=== PATIENT | female | born 1935 | race Caucasian/White ===

== ENCOUNTER 2017-09-19 06:44 | Inpatient (IN) | payer OTHER, MEDICARE ==
[2017-09-19 07:12] VITALS: BMI 25.7
--- NOTE | 2017-09-19 07:29 | PDOC ---
History of Present Illness - General Chief Complaint: Syncope/Near Syncope Stated Complaint: SYNCOPE Time Seen by Provider: 09/19/17 07:25 - History of Present Illness Initial Comments: 09/19/17 07:26 82 yo F with h/o HLD, HTN, and severe dementia BIBA from [facility] ( [facility] ) with seizure. Pt. vitals stable on EMS arrival. Pt. non verbal, and non communicative, and confused at baseline. Unable to obtain history from pt. Per nursing staff at [facility] ) Patient loss consciousness while nursing manager was tying pt. shoes while sitting down, and the patient closed her eyes, and started shaking / convulsing with generalized tonic clonic movements for less than one minute with tongue deviated to one side and foam out of mouth. Episode of urinary incontinence and was unresponsive following event. EMS performed chest compressions pt. with faint pulse. Did not delivery defibrillation or epinephrine. Nursing staff reports this has happened to her 1-2 years ago with admission to hospital and negative workup. [facility] night and day team report that EMS told them that this pt. had a syncopal event. There is no EMS fax report to clarify in ED. Nursing reports that she has not had F/C, N/V, wheezing , cough, diarrhea, constipation, weakness, LOC. Typically ambulates without assistive device. No reports of falls or change in behavior. Not on anticoagulation. Past History - Past Medical History Allergies/Adverse Reactions: Allergies Allergy/AdvReac Type Severity Reaction Status Date / Time No Known Allergies Allergy Verified 09/19/17 07:12 Home Medications: Ambulatory Orders Amlodipine Besylate 5 mg PO DAILY 09/19/17 Cholecalciferol (Vitamin D3) [Vitamin D] 2,000 unit PO DAILY 09/19/17 Losartan Potassium 50 mg PO DAILY 09/19/17 Quetiapine Fumarate [Seroquel -] 12.5 mg PO HS 09/19/17 Rosuvastatin [Crestor -] 10 mg PO DAILY 09/19/17 Sennosides [Senna Laxative] 17.2 mg PO HS 09/19/17 Anemia: Yes COPD: No Dementia: Yes GI Disorders: Yes (CONSTIPATION HX) HTN: Yes Hypercholesterolemia: Yes Psychiatric Problems: Yes (depression, anxiety) - Surgical History Abdominal Surgery: Yes (bowel obstruction) - Immunization History Td Vaccination: Yes TDAP Vaccination: Yes Immunization Up to Date: Yes - Suicide/Smoking/Psychosocial Hx Smoking History: Never smoked Have you smoked in the past 12 months: No Hx Alcohol Use: No Drug/Substance Use Hx: No Substance Use Type: None Hx Substance Use Treatment: No Review of Systems - Review of Systems Comments:: 09/19/17 07:27 Unable to obtain ROS d/t confusion. *Physical Exam - Vital Signs Last Vital Signs Temp Pulse Resp BP Pulse Ox 97.7 F 80 18 183/51 98 09/19/17 07:06 09/19/17 07:06 09/19/17 07:06 09/19/17 07:06 09/19/17 07:06 - Physical Exam Comments: 09/19/17 07:27 GENERAL: Awake, alert, and not oriented. Pt. not verbalizing or following commands. HEAD: No signs of trauma, normocephalic, atraumatic EYES: PERRLA, EOMI, sclera anicteric, conjunctiva clear ENT: Auricles normal inspection, hearing grossly normal, nares patent, oropharynx clear without exudates. Moist mucosa NECK: Normal ROM, supple, no lymphadenopathy, JVD, or masses LUNGS: No distress, speaks full sentences, clear to auscultation bilaterally HEART: Regular rate and rhythm, normal S1 and S2, no murmurs, rubs or gallops, peripheral pulses normal and equal bilaterally. ABDOMEN: Soft, nontender, normoactive bowel sounds. No guarding, no rebound. No masses. Neg CVA ttp. EXTREMITIES : Normal inspection, Normal range of motion, no edema. No clubbing or cyanosis. NEUROLOGICAL: Limited d/t mental status. Cranial nerves II through XII grossly intact. Gross motor strength in UE and LE intact. SKIN: Warm, Dry, normal turgor, no rashes or lesions noted ED Treatment Course - LABORATORY CBC & Chemistry Diagram: 09/19/17 08:00 09/19/17 08:00 Medical Decision Making - Medical Decision Making 09/19/17 07:38 82 yo F with h/o HLD, HTN, and severe dementia ( non verbal, and non communicative, and confused at baseline) BIBA from OS( [facility]) with generalized tonic clonic movements ofor less than ne minute. Nursing staff reports 1 cycle of chest compressions for unresponsiveness and absent pulse. Pt. hypertensive on arrival 183/51, non hypoxic, and AF. Nursing reports that she has not had F/C, N/V, wheezing, cough, diarrhea, constipation, weakness, LOC. Typically ambulates without assistive device. No reports of falls or change in behavior. Not on anticoagulation. Physical exam notable for foul smelling urine and on communicative at baseline. BP 116/54 improved from ED arrival 183/51.Pt. unable to communicate symptom, elderly, and with risk factors for CVA/TIA.Will obtain head imaging. Will consider underlying infection ( urinary source, meningitis, encephalitis), electrolyte deficiency, or acid-base derangement/ metabolic disturbance, hypoglycemia, or mass effect for acute seizure in elderly pt. Pt. may have fallen or syncopated prior to seizure like activity Differential for syncope is broad. Will evaluate for causes of syncope including cardiogenic (underlying heart dz. vs. dysarrythmias) , hypovolemia, neurogenic induced syncope. PMD. Yana Dawson. ED Course: CBC, CMP, Cardiac Pr, Lipase Lactic acid, blood culture, urine culture EKG, CXR CT HEAD, CT C SPINE NS 1 L 09/19/17 08:38 WBC: 11.0 09/19/17 09:36 Glu: 126 Trop: Neg 09/19/17 09:38 UA:Cloudy, 2+ Leuk Esterase. 42 WBC Ceftriaxone 1 g 09/19/17 09:40 CT HEAD: Unremarkable. Left thickening of external auditory canal wall. CXR: Unremarkable. Bibasilar atelectasis. 09/19/17 10:36 Admit to tele/inpt. per Dr. Andrade. *DC/Admit/Observation/Transfer Diagnosis at time of Disposition: Seizure, Cystitis - Discharge Dispostion Admit: Yes - Referrals Referrals: Yana Orozco MD [Primary Care Provider] - - Patient Instructions Additional Instructions: Please return to the emergency department with any new or worsening symptoms or concerns. Please follow up with your primary care physician within 72 hours. - Post Discharge Activity - Attestations Physician Attestion: 09/19/17 07:29 I attest to the information provided in this note.
[2017-09-19 08:05] LABS: BASO % 0.4 % (0-2.0); EOS % 0.6 % (0-4.5); HEMATOCRIT 36.8 % (32.4-45.2); HEMOGLOBIN 12.4 GM/dL (10.7-15.3); LYMPH % 10.6 % (8-40); MCH 28.4 pg (25.7-33.7); MCHC 33.7 g/dl (32.0-36.0); MEAN CELL VOLUME 84.2 fl (80-96); MEAN PLT VOLUME 8.9 fl (7.5-11.1); MONO % 5.9 % (3.8-10.2); NEUT % 82.5 % (42.8-82.8); PLATELET COUNT 151 K/MM3 (134-434); RBC 4.37 M/mm3 (3.60-5.2)
[2017-09-19 08:35] LABS: ALBUMIN 3.4 g/dl (3.4-5.0); ANION GAP 6 (8-16); BILIRUBIN,TOTAL 0.3 mg/dL (0.2-1.0); BLOOD UREA NITROGEN 15 mg/dL (7-18); CALCIUM 8.8 mg/dL (8.5-10.1); CHLORIDE 110 mmol/L (98-107); CO2 28 mmol/L (21-32); GLUCOSE,RANDOM 126 mg/dL (74-106); POTASSIUM 4.5 mmol/L (3.5-5.1); SGOT/AST 16 U/L (15-37); SGPT/ALT 29 U/L (12-78); SODIUM 144 mmol/L (136-145); TOT PROT 6.9 g/dl (6.4-8.2)
[2017-09-19 08:36] LABS: URINE APPEARANCE SLCLOUDY; URINE BILIRUBIN NEGATIVE (<2.0 mg/dL); URINE BLOOD NEGATIVE (NEGATIVE); URINE COLOR YELLOW; URINE GLUCOSE (UA) NEGATIVE (NEGATIVE); URINE KETONE NEGATIVE (NEGATIVE); URINE NITRITE POSITIVE (NEGATIVE); URINE PROTEIN NEGATIVE (NEGATIVE); URINE UROBILINOGEN NEGATIVE mg/dL (0.2-1.0)
[2017-09-19 08:36] LABS: ALK PHOS 170 U/L (45-117)
[2017-09-19 08:39] LABS: URINE LEUK ESTERASE 2+ (NEGATIVE)
[2017-09-19 08:40] LABS: EPI CELLS RARE /HPF (FEW); URINE BACTERIA FEW /hpf (NONE SEEN)
--- NOTE | 2017-09-19 08:49 | PDOC ---
Attending Attestation - Resident Resident Name: AshwinTyrelKamron - ED Attending Attestation I have performed the following: I have examined & evaluated the patient, The case was reviewed & discussed with the resident, I agree w/resident's findings & plan, Exceptions are as noted - HPI HPI: 09/19/17 08:48 82y F hx ofhtn, hl, dementia, presents from NH with complaint of seizure episode - was witnessed by aide per NH staff, pt noted to have generalized seizure like activity - was described as with eyes open +urinary incontinence, and there history consistent with a postictal period pt is limited from the patient. afterwards, upon arrival by EMS there was a period of nonresponsiveness, and thought to be pulselss and initiated chest compressions x 1 cycle. we were unabl eto confirm with EMS as EMS departed prior to our evaluation of the patient. history is limited by pateint due to dementia. GENERAL: The patient is awake, Nontoxic - in no acute distress. HEAD: Normocephalic, atraumatic. EYES: extraocular movements intact, sclera anicteric, conjunctiva clear. ENT: Normal voice, Moist mucous membranes. LUNGS: Breath sounds equal, clear to auscultation bilaterally. No wheezes, no rhonchi, no rales. HEART: Regular rate and rhythm, without murmur, rub or gallop. ABDOMEN: Soft, nontender, No guarding, no rebound.No CVA tenderness EXTREMITIES: Normal range of motion, no edema. NEUROLOGICAL: No facial assymetry, moving extremities spontaneously SKIN: Warm, Dry, normal turgor, seizure, ?cardiac arrest vs. post ictal period will r/ cardiac event, occult infection, metabolic derangment pt wella ppearing in no distress on exam will ck labs to r/o metabolic derangement ekg to screen for arrythmias/acs shipper and receiving anticipate admission for further management - Physicial Exam PE: 09/20/17 14:53 see above - Medical Decision Making pts labs noted for +UTI will treat for cystitis admit for further management stable for etele
[2017-09-19 09:03] LABS: INR 1.05 (0.82-1.09); PROTHROMBIN TIME (PATIENT) 11.9 SEC (9.98-11.88)
[2017-09-19] MEDS: SODIUM CHLORIDE 1,000 ML IV SCH ×2 (09:10→22:59)
[2017-09-19] MEDS ORDERED: SODIUM CHLORIDE 1,000 ML IV STA (10:02)
[2017-09-19] MEDS ORDERED: CEFTRIAXONE 1 GM/50 ML BAG ONE (10:13)
--- NOTE | 2017-09-19 10:57 | HP ---
CHIEF COMPLAINT: s/p seizure PCP: HISTORY OF PRESENT ILLNESS: This is an 82 yo F with PMH of HLD, HTN, and advanced Alzheimers dementia, BIBA from [facility] s/p generalized seizure. Even was witnessed by [facility] staff, patient was sitting in bed, there was no obvious predisposing event (no trauma, loud noise, bright light, sudden movement). It is uncertain how long event lasted but it involved mouth frothing/ urination and resolved spontaneously, followed by post ictal state. Patient had a similar episode 2 yrs ago, with some work up performed at [facility] without conclusive diagnosis. There has been no recent medication change. EMS reports that when they arrived patient had no palpable pulse so some chest compressions were done w/o other intervention. On arrival BP was initially 180 systolic and then decreased to 100 -110 systolic, which is patients baseline. She has given 2L ns in ed. At baseline patient is nonverbal, sometimes makes eye contact, ambulates with assistance from staff but w/o cane or walker. History obtained from record and her brother at bedside. ER course was notable for: (1)labs (2)ekg: L axis, ns (3)CT head: chronic age related volume loss. Cervical spine CT: no acute fracture. CXR: bibasilar atelectasis changes (4)IV NS 2L Recent Travel: none PAST MEDICAL HISTORY: as above PAST SURGICAL HISTORY: hysterectomy Social History: [place] resident. Brother is next of KIN. Smoking: none Alcohol:none Drugs: none Family History: unknown Allergies No Known Allergies Allergy (Verified 09/19/17 07:12) HOME MEDICATIONS: Home Medications Medication Instructions Recorded Amlodipine Besylate 5 mg PO DAILY 09/19/17 Cholecalciferol (Vitamin D3) 2,000 unit PO DAILY 09/19/17 [Vitamin D] Losartan Potassium 50 mg PO DAILY 09/19/17 Quetiapine Fumarate [Seroquel -] 12.5 mg PO HS 09/19/17 Rosuvastatin [Crestor -] 10 mg PO DAILY 09/19/17 Sennosides [Senna Laxative] 17.2 mg PO HS 09/19/17 REVIEW OF SYSTEMS unable to obtain PHYSICAL EXAMINATION Vital Signs - 24 hr 09/19/17 09/19/17 09/19/17 07:06 08:12 08:20 Temperature 97.7 F Pulse Rate 80 Respiratory 18 Rate Blood Pressure 183/51 Blood Pressure 116/54 [Right Arm] O2 Sat by Pulse 98 97 Oximetry (%) GENERAL: Awake, in no acute distress, makes eye contact, nonverbal. HEAD: Normal with no signs of trauma. EYES: Pupils equal, round and reactive to light, sclera anicteric, conjunctiva clear. No lid lag. EARS, NOSE, THROAT: Moist mucous membranes. NECK: supple without lymphadenopathy, JVD, or masses. LUNGS: Breath sounds equal, clear to auscultation bilaterally. HEART: Regular rate and rhythm, normal S1 and S2 ABDOMEN: Soft, nontender, not distended, normoactive bowel sounds, no guarding, no rebound, no masses. MUSCULOSKELETAL: No CVA tenderness. UPPER EXTREMITIES: 2+ pulses, warm, well-perfused. No cyanosis. No clubbing. No peripheral edema. LOWER EXTREMITIES: 1+ pulses, warm, well-perfused. No calf tenderness. trace peripheral edema. NEUROLOGICAL: Cranial nerves II-XII grossly intact. moves all extremities when provoked PSYCHIATRIC: calm SKIN: Warm, dry Laboratory Results - last 24 hr 09/19/17 09/19/17 09/19/17 07:46 07:46 07:46 WBC RBC Hgb Hct MCV MCH MCHC RDW Plt Count MPV Neutrophils % Lymphocytes % Monocytes % Eosinophils % Basophils % PT with INR INR Sodium Potassium Chloride Carbon Dioxide Anion Gap BUN Creatinine Creat Clearance w eGFR Random Glucose Lactic Acid Calcium Total Bilirubin AST ALT Alkaline Phosphatase Creatine Kinase 61 Troponin I < 0.02 Total Protein Albumin Lipase 47 L Urine Color Yellow Urine Appearance Slcloudy Urine pH 6.0 Ur Specific [place] 1.009 Urine Protein Negative Urine Glucose (UA) Negative Urine Ketones Negative Urine Blood Negative Urine Nitrite Positive Urine Bilirubin Negative Urine Urobilinogen Negative Ur Leukocyte Esterase 2+ H Urine WBC (Auto) 42 Urine RBC (Auto) 1 Ur Epithelial Cells Rare Urine Bacteria Few 09/19/17 09/19/17 09/19/17 08:00 08:00 08:00 WBC 11.0 H D RBC 4.37 Hgb 12.4 D Hct 36.8 D MCV 84.2 MCH 28.4 MCHC 33.7 RDW 14.0 Plt Count 151 MPV 8.9 Neutrophils % 82.5 Lymphocytes % 10.6 D Monocytes % 5.9 Eosinophils % 0.6 Basophils % 0.4 PT with INR 11.90 H INR 1.05 Sodium 144 Potassium 4.5 Chloride 110 H Carbon Dioxide 28 Anion Gap 6 L BUN 15 Creatinine 1.0 Creat Clearance w eGFR 53.35 Random Glucose 126 H Lactic Acid Calcium 8.8 Total Bilirubin 0.3 D AST 16 ALT 29 Alkaline Phosphatase 170 H Creatine Kinase Troponin I Total Protein 6.9 Albumin 3.4 Lipase Urine Color Urine Appearance Urine pH Ur Specific [place] Urine Protein Urine Glucose (UA) Urine Ketones Urine Blood Urine Nitrite Urine Bilirubin Urine Urobilinogen Ur Leukocyte Esterase Urine WBC (Auto) Urine RBC (Auto) Ur Epithelial Cells Urine Bacteria 09/19/17 09:30 WBC RBC Hgb Hct MCV MCH MCHC RDW Plt Count MPV Neutrophils % Lymphocytes % Monocytes % Eosinophils % Basophils % PT with INR INR Sodium Potassium Chloride Carbon Dioxide Anion Gap BUN Creatinine Creat Clearance w eGFR Random Glucose Lactic Acid 1.7 Calcium Total Bilirubin AST ALT Alkaline Phosphatase Creatine Kinase Troponin I Total Protein Albumin Lipase Urine Color Urine Appearance Urine pH Ur Specific [place] Urine Protein Urine Glucose (UA) Urine Ketones Urine Blood Urine Nitrite Urine Bilirubin Urine Urobilinogen Ur Leukocyte Esterase Urine WBC (Auto) Urine RBC (Auto) Ur Epithelial Cells Urine Bacteria ASSESSMENT/PLAN: This is an 82 yo F with PMH of HLD, HTN, and advanced Alzheimers dementia, BIBA from [facility] s/p generalized seizure. Generalized seizure in setting of advanced Alzheimers dementia -second episode in 2 yrs -up to 20% of Alzheimers patients develop focal or generalizes SZ in late course of disease -may be secondary to CVA/TIA since 50% of all SZ in elderly is associated with ischemic episodes -CT head negative for structural cause or hemorrhage -so far unexplained by metabolic causes; f/u TFT's, mag, phos -admit tele -PT -high dose crestor, ASA -swallow eval -brain MRI -antiepeleptic medication initiation is highly nuanced in this population and warrants Neurology consult -possible EEG UTI -present nitrites and leuk est on UA, however, considered asymptomatic and does not warrant abx HTN -resume home losartan, norvasc. HLD -crestor FEN: no IVF f/u lytes dysphagia puree, nectar liquids, NA restricted SQ Luan DNR/DNI ADM tele Problem List - Problem (1) Alzheimer's dementia Code(s): G30.9 - ALZHEIMER'S DISEASE, UNSPECIFIED; F02.80 - DEMENTIA IN OTH DISEASES CLASSD ELSWHR W/O BEHAVRL DISTURB (2) HTN (hypertension) Code(s): I10 - ESSENTIAL (PRIMARY) HYPERTENSION (3) HLD (hyperlipidemia) Code(s): E78.5 - HYPERLIPIDEMIA, UNSPECIFIED (4) Seizure Code(s): R56.9 - UNSPECIFIED CONVULSIONS (5) DVT prophylaxis Code(s): SNF3056 - (6) Dementia Code(s): F03.90 - UNSPECIFIED DEMENTIA WITHOUT BEHAVIORAL DISTURBANCE Qualifiers: Dementia type: Alzheimer's disease Alzheimer's disease onset: unspecified onset Dementia behavioral disturbance: without behavioral disturbance Qualified Code(s): G30.9 - Alzheimer's disease, unspecified Visit type - Emergency Visit Emergency Visit: Yes ED Registration Date: 09/19/17 Care time: The patient presented to the Emergency Department on the above date and was hospitalized for further evaluation of their emergent condition. - New Patient This patient is new to me today: Yes Date on this admission: 09/19/17 - Critical Care Critical Care patient: No Hospitalist Screening - Colonoscopy Questionnaire Colonoscopy Questionnaire: Colonoscopy Questionnaire - Patient: 50 - 75 years old and never had a screening colonoscopy: No History of colon or rectal polyps, or CA: No History of IBD, Crohn's disease or UC: No History of abdominal radiation therapy as a child: No - Relative: 1 with colon or rectal CA, or polyps at age 60 or younger: No Colon or rectal CA diagnosed at age 45 or younger: No Multiple relatives with colon or rectal CA: No - Outcome: Screening Result: Negative Screen
--- NOTE | 2017-09-19 11:03 | EKG ---
Test Reason : Blood Pressure : / mmHG Vent. Rate : 083 BPM Atrial Rate : 083 BPM P-R Int : 198 ms QRS Dur : 070 ms QT Int : 376 ms P-R-T Axes : 032 -25 039 degrees QTc Int : 441 ms POOR DATA QUALITY, INTERPRETATION MAY BE ADVERSELY AFFECTED NORMAL SINUS RHYTHM NONSPECIFIC ST AND T WAVE ABNORMALITY ABNORMAL ECG WHEN COMPARED WITH ECG OF 31-AUG-2015 09:12, VENT. RATE HAS INCREASED BY [address] NOW DEPRESSED IN ANTERIOR LEADS Confirmed by GITA MA, OLIVEIR ([id number]) on 09/19/2017 11:03:04 AM Referred By: Confirmed By:OLIVIER PELAYO MD
[2017-09-19] MEDS ORDERED: ROSUVASTATIN CA 40 MG TABLET PO ONE (11:08)
[2017-09-19 12:07] LABS: MAGNESIUM 2.6 mg/dL (1.8-2.4)
[2017-09-19] MEDS ORDERED: ASPIRIN 325 MG ENTERIC COATED TABLET (FP) PO ONE (13:45)
--- NOTE | 2017-09-19 14:28 | PN ---
Teaching Attending Note Name of Resident: Renata Andrade ATTENDING PHYSICIAN STATEMENT I saw and evaluated the patient. I reviewed the resident's note and discussed the case with the resident. I agree with the resident's findings and plan as documented. SUBJECTIVE: This is an 82 year old woman with a history of HTN, hyperlipidemia, Alzheimer dementia, anemia, adrenal adenoma, constipation who was sent to the ED from [facility] after having a seizure. The patient is unable to provide a history. It was reported that while an aide was tying her shoes while she was sitting, she started shaking. She had generalized tonic clonic movements. Her tongue was deviated, she was foaming at the mouth, and she was incontinent of urine. Afterwards, she was unresponsive. EMS arrived and thought she was pulseless and started chest compressions. OBJECTIVE: Vital Signs Period Temp Pulse Resp BP Sys/Freeman Pulse Ox Last 24 Hr 97.7 F 80 18 116-183/51-54 97-98 GENERAL: Awake, non-communicative HEART: S1S2, RRR LUNGS: Clear ABDOMEN: Soft, non-distended, normal BS EXTREMITIES: No edema Laboratory Tests 09/19/17 09/19/17 09/19/17 07:46 07:46 07:46 WBC RBC Hgb Hct MCV MCH MCHC RDW Plt Count MPV Neutrophils % Lymphocytes % Monocytes % Eosinophils % Basophils % PT with INR INR Sodium Potassium Chloride Carbon Dioxide Anion Gap BUN Creatinine Creat Clearance w eGFR Random Glucose Lactic Acid Calcium Phosphorus Magnesium Total Bilirubin AST ALT Alkaline Phosphatase Creatine Kinase 61 Troponin I < 0.02 Total Protein Albumin Lipase 47 L TSH Free T4 Urine Color Yellow Urine Appearance Slcloudy Urine pH 6.0 Ur Specific [place] 1.009 Urine Protein Negative Urine Glucose (UA) Negative Urine Ketones Negative Urine Blood Negative Urine Nitrite Positive Urine Bilirubin Negative Urine Urobilinogen Negative Ur Leukocyte Esterase 2+ H Urine WBC (Auto) 42 Urine RBC (Auto) 1 Ur Epithelial Cells Rare Urine Bacteria Few 09/19/17 09/19/17 09/19/17 08:00 08:00 08:00 WBC 11.0 H D RBC 4.37 Hgb 12.4 D Hct 36.8 D MCV 84.2 MCH 28.4 MCHC 33.7 RDW 14.0 Plt Count 151 MPV 8.9 Neutrophils % 82.5 Lymphocytes % 10.6 D Monocytes % 5.9 Eosinophils % 0.6 Basophils % 0.4 PT with INR 11.90 H INR 1.05 Sodium 144 Potassium 4.5 Chloride 110 H Carbon Dioxide 28 Anion Gap 6 L BUN 15 Creatinine 1.0 Creat Clearance w eGFR 53.35 Random Glucose 126 H Lactic Acid Calcium 8.8 Phosphorus Magnesium Total Bilirubin 0.3 D AST 16 ALT 29 Alkaline Phosphatase 170 H Creatine Kinase Troponin I Total Protein 6.9 Albumin 3.4 Lipase TSH Free T4 Urine Color Urine Appearance Urine pH Ur Specific [place] Urine Protein Urine Glucose (UA) Urine Ketones Urine Blood Urine Nitrite Urine Bilirubin Urine Urobilinogen Ur Leukocyte Esterase Urine WBC (Auto) Urine RBC (Auto) Ur Epithelial Cells Urine Bacteria 09/19/17 09/19/17 09/19/17 09:30 09:55 09:55 WBC RBC Hgb Hct MCV MCH MCHC RDW Plt Count MPV Neutrophils % Lymphocytes % Monocytes % Eosinophils % Basophils % PT with INR INR Sodium Potassium Chloride Carbon Dioxide Anion Gap BUN Creatinine Creat Clearance w eGFR Random Glucose Lactic Acid 1.7 Calcium Phosphorus 2.0 L Magnesium 2.6 H Total Bilirubin AST ALT Alkaline Phosphatase Creatine Kinase Troponin I Total Protein Albumin Lipase TSH 3.71 Free T4 1.35 Urine Color Urine Appearance Urine pH Ur Specific [place] Urine Protein Urine Glucose (UA) Urine Ketones Urine Blood Urine Nitrite Urine Bilirubin Urine Urobilinogen Ur Leukocyte Esterase Urine WBC (Auto) Urine RBC (Auto) Ur Epithelial Cells Urine Bacteria Home Medications Medication Instructions Recorded Amlodipine Besylate 5 mg PO DAILY 09/19/17 Cholecalciferol (Vitamin D3) 2,000 unit PO DAILY 09/19/17 [Vitamin D] Losartan Potassium 50 mg PO DAILY 09/19/17 Quetiapine Fumarate [Seroquel -] 12.5 mg PO HS 09/19/17 Rosuvastatin [Crestor -] 10 mg PO DAILY 09/19/17 Sennosides [Senna Laxative] 17.2 mg PO HS 09/19/17 ASSESSMENT AND PLAN: This is an 82 year old woman with a history of HTN, hyperlipidemia, Alzheimer dementia, anemia, adrenal adenoma, constipation who presented to the ED from [facility] after having a seizure. 1. Seizure - Admit to telemetry - Neurology evaluation - Treat UTI 2. UTI - Start Rocephin - Follow up urine culture 3. Hypophosphatemia - Supplement phosphorus 4. Advanced Alzheimer dementia - Continue Seroquel 5. Hypertension - Continue Akin Valentine 6. Hyperlipidemia - Continue Crestor 7. Constipation - Continue Senna
--- NOTE | 2017-09-19 14:50 | CONSULT ---
Consult - text type - Consultation Consultation Note: NEUROLOGY CONSULTATION is greatly appreciated: This 82 yo female [facility] resident with h/o HTN, Chol and advanced OMS is maintained on amlodipine, losartan, quetiapine and rosuvastatin. Pt. had witnessed LOC while sitting in chair followed by probable seizure activity, foaming at mouth, shaking, with a "faint pulse" described. Chart reports a similar presentation 2 years ago[address] In ER CT of head (reviewed) reveals severe, diffuse atrophy, ex vacuo hydrocephalus, and diffuse white matter microvascular changes. CT of Cervical spine: Diffuse DJD with foraminal stenoses but no fractures or subluxations. WBC= 11 K; urine WBC=42. Given 1 gm of Ceftriaxone, then D/C'ed. JOSE: Neck supple. -Kernig's. No bruits. No evidence of external head trauma. No tongue biting. NEURO: Resting with eyes closed. Opens eyes to name. Follows no commands. No useful speech. + Glabella, snout suck, palmomentals, grasps. Full wilburn to threat. Full EOM's. Gag OK Motor: Rigid tone. No drift. Moves all fours symmetrically. Normal reflexes. Toes downgoing. Withdraws all 4's to pinch. IMP: Severe B/L cerebral dysfunction c/w advanced Alzheimer's Disease (AD). Syncope (convulsive syncope) vs. Primary seizure Toxic-metabolic encephalopathy due to UTI/Urosepsis. SUGGEST: Please continue Rx of UTI and repeat UA to assure sterility. Continue hydration. Check B12, TSH, RPR, ESR, CRP. Levetiracetam elixor 250 mg q 12 hrs. Thank you very much, Benigno Arciniega MD
[2017-09-19] MEDS: levETIRAcetam 500 MG/5 ML ORAL SOLUTION (UNIT-DOSE CUPS) PO SCH (22:35)
[2017-09-19] MEDS: QUEtiapine FUMARATE 25 MG TABLET (FP) PO SCH (22:36)
[2017-09-19] MEDS: SENNOSIDES 8.6MG TABLET (FP) PO SCH (22:36)
[2017-09-19] MEDS: NAPH,MB-DB/K PH,MBDB POWDER PACKET PO SCH (22:36)
[2017-09-20 08:25] LABS: BASO % 0.5 % (0-2.0); EOS % 1.5 % (0-4.5); HEMATOCRIT 31.3 % (32.4-45.2); HEMOGLOBIN 10.6 GM/dL (10.7-15.3); LYMPH % 32.5 % (8-40); MCH 28.5 pg (25.7-33.7); MCHC 33.8 g/dl (32.0-36.0); MEAN CELL VOLUME 84.4 fl (80-96); MEAN PLT VOLUME 9.3 fl (7.5-11.1); MONO % 9.6 % (3.8-10.2); NEUT % 55.9 % (42.8-82.8); PLATELET COUNT 136 K/MM3 (134-434); RBC 3.71 M/mm3 (3.60-5.2); RDW 13.9 % (11.6-15.6); WHITE BLOOD COUNT 5.7 K/mm3 (4.0-10.0)
[2017-09-20 08:33] LABS: CHLORIDE 115 mmol/L (98-107); POTASSIUM 4.3 mmol/L (3.5-5.1); SODIUM 146 mmol/L (136-145)
[2017-09-20 08:38] LABS: INR 1.1 (0.82-1.09); PROTHROMBIN TIME (PATIENT) 12.4 SEC (9.98-11.88)
[2017-09-20 08:49] LABS: ANION GAP 6 (8-16); BLOOD UREA NITROGEN 11 mg/dL (7-18); CHOLESTEROL 126 mg/dL (50-200); CO2 25 mmol/L (21-32); CREATININE 0.9 mg/dL (0.55-1.02); GLUCOSE,RANDOM 91 mg/dL (74-106); HDL CHOLESTEROL 44 mg/dL (40-60); LDL CHOLESTEROL (ONLY SJRH) 69 mg/dL (5-100); MAGNESIUM 2.2 mg/dL (1.8-2.4); PHOSPHOROUS 2.3 mg/dL (2.5-4.9); TRIGLYCERIDES 123 mg/dL (35-160)
[2017-09-20] MEDS ORDERED: DEXTROSE 5%-WATER - 50 ML IVPB ONE (09:10)
[2017-09-20] MEDS ORDERED: cefTRIAXone SODIUM 1 GM VIAL ONE (09:10)
[2017-09-20] MEDS: CEFTRIAXONE 1 GM in DEXTROSE 5%-WATER - 50 ML IVPB SCH (09:11)
[2017-09-20] MEDS: amLODIPine BESYLATE 5 MG TABLET (FP) PO SCH (09:12)
[2017-09-20] MEDS: ASPIRIN COATED 81 MG TABLET.EC PO SCH (09:12)
[2017-09-20] MEDS: NAPH,MB-DB/K PH,MBDB POWDER PACKET PO SCH ×2 (09:12→21:01)
[2017-09-20] MEDS: ENOXAPARIN NA (PORCINE) 40 MG/0.4 ML DISP.SYRIN SQ SCH (09:12)
[2017-09-20] MEDS: CHOLECALCIFEROL (VITAMIN D3) 1,000 UNIT TABLET (FP) PO SCH (09:12)
[2017-09-20] MEDS: LOSARTAN POTASSIUM 50 MG TABLET (FP) PO SCH (09:12)
[2017-09-20] MEDS: DEXTROSE 5%-0.45% SALINE 1,000 ML IV SCH ×2 (09:13→17:06)
[2017-09-20] MEDS: levETIRAcetam 500 MG/5 ML ORAL SOLUTION (UNIT-DOSE CUPS) PO SCH ×2 (09:13→21:04)
[2017-09-20] MEDS ORDERED: ROSUVASTATIN CA 10 MG TABLET (FP) PO SCH ×2 (10:00→22:00)
--- NOTE | 2017-09-20 18:33 | PN ---
Physical Exam: SUBJECTIVE: Patient seen and examined. She is awake, alert and non-verbal. She appears comfortable. OBJECTIVE: Vital Signs Period Temp Pulse Resp BP Sys/Freeman Pulse Ox Last 24 Hr 97.7 F-99.8 F 57-71 16-20 113-136/53-79 97-98 GENERAL: The patient is awake, alert, in no acute distress. LUNGS: Breath sounds equal, clear to auscultation bilaterally, no wheezes, no crackles, no accessory muscle use. HEART: Regular rate and rhythm, S1, S2 without murmur, rub or gallop. ABDOMEN: Soft, nondistended, normoactive bowel sounds, no hepatosplenomegaly, no masses. EXTREMITIES: 2+ pulses, warm, well-perfused, no edema. Laboratory Results - last 24 hr 09/19/17 09/20/17 09/20/17 21:58 05:02 06:00 WBC 5.7 D RBC 3.71 Hgb 10.6 L D Hct 31.3 L MCV 84.4 MCH 28.5 MCHC 33.8 RDW 13.9 Plt Count 136 MPV 9.3 Neutrophils % 55.9 D Lymphocytes % 32.5 D Monocytes % 9.6 Eosinophils % 1.5 D Basophils % 0.5 ESR PT with INR INR Sodium Potassium Chloride Carbon Dioxide Anion Gap BUN Creatinine POC Glucometer 96 81 Random Glucose Hemoglobin A1c % Calcium Phosphorus Magnesium C-Reactive Protein Triglycerides Cholesterol Total LDL Cholesterol HDL Cholesterol Vitamin B12 TSH RPR Titer 09/20/17 09/20/17 09/20/17 06:00 06:00 06:00 WBC RBC Hgb Hct MCV MCH MCHC RDW Plt Count MPV Neutrophils % Lymphocytes % Monocytes % Eosinophils % Basophils % ESR PT with INR 12.40 H INR 1.10 Sodium 146 H Potassium 4.3 Chloride 115 H Carbon Dioxide 25 Anion Gap 6 L BUN 11 Creatinine 0.9 POC Glucometer Random Glucose 91 Hemoglobin A1c % 5.6 Calcium 8.0 L Phosphorus 2.3 L Magnesium 2.2 C-Reactive Protein Triglycerides 123 Cholesterol 126 Total LDL Cholesterol 69 HDL Cholesterol 44 Vitamin B12 TSH 1.34 RPR Titer 09/20/17 09/20/17 09/20/17 06:00 06:00 06:00 WBC RBC Hgb Hct MCV MCH MCHC RDW Plt Count MPV Neutrophils % Lymphocytes % Monocytes % Eosinophils % Basophils % ESR 14 PT with INR INR Sodium Potassium Chloride Carbon Dioxide Anion Gap BUN Creatinine POC Glucometer Random Glucose Hemoglobin A1c % Calcium Phosphorus Magnesium C-Reactive Protein < 0.3 Triglycerides Cholesterol Total LDL Cholesterol HDL Cholesterol Vitamin B12 247 TSH RPR Titer Nonreactive 09/20/17 09/20/17 11:42 16:51 WBC RBC Hgb Hct MCV MCH MCHC RDW Plt Count MPV Neutrophils % Lymphocytes % Monocytes % Eosinophils % Basophils % ESR PT with INR INR Sodium Potassium Chloride Carbon Dioxide Anion Gap BUN Creatinine POC Glucometer 121 120 Random Glucose Hemoglobin A1c % Calcium Phosphorus Magnesium C-Reactive Protein Triglycerides Cholesterol Total LDL Cholesterol HDL Cholesterol Vitamin B12 TSH RPR Titer Active Medications Generic Name Dose Route Start Last Admin Trade Name Freq PRN Reason Stop Dose Admin Amlodipine Besylate 5 mg 09/20/17 10:00 09/20/17 09:12 Norvasc - PO 5 mg DAILY ANTHONY Administration Aspirin 81 mg 09/20/17 10:00 09/20/17 09:12 Ecotrin - PO 81 mg DAILY ANTHONY Administration Cholecalciferol 2,000 unit 09/20/17 10:00 09/20/17 09:12 Vitamin D3 - PO 2,000 unit DAILY ANTHONY Administration Enoxaparin Sodium 40 mg 09/20/17 10:00 09/20/17 09:12 Lovenox - SQ 40 mg DAILY ANTHONY Administration Ceftriaxone Sodium 1 gm/ 50 mls @ 200 mls/hr 09/20/17 10:00 09/20/17 09:11 Dextrose IVPB 200 mls/hr DAILY ANTHONY Administration Dextrose/Sodium Chloride 1,000 mls @ 100 mls/hr 09/20/17 05:15 09/20/17 17:06 D5-1/2ns - IV 100 mls/hr ASDIR ANTHONY Administration Levetiracetam 250 mg 09/19/17 22:00 09/20/17 09:13 Keppra Oral Solution - PO 250 mg BID ANTHONY Administration Losartan Potassium 50 mg 09/20/17 10:00 09/20/17 09:12 Cozaar - PO 50 mg DAILY ANTHONY Administration Potassium Phos/Sodium Phos 1 packet 09/19/17 22:00 09/20/17 09:12 Phos-Nak Packet - PO 09/21/17 21:59 1 packet BID ANTHONY Administration Quetiapine Fumarate 12.5 mg 09/19/17 22:00 09/19/17 22:36 Seroquel - PO 12.5 mg HS ANTHONY Administration Rosuvastatin Calcium 10 mg 09/20/17 22:00 Crestor - PO HS ANTHONY Senna 1 tab 09/19/17 22:00 09/19/17 22:36 Senna - PO 1 tab HS ANTHONY Administration ASSESSMENT/PLAN: This is an 82 year old woman with a history of HTN, hyperlipidemia, Alzheimer dementia, anemia, adrenal adenoma, constipation who presented to the ED from [facility] after having a seizure. 1. Seizure - Neurology input appreciated - Keppra started 2. UTI - Continue Rocephin (day 2) - Urine culture growing non lactose fermenting gram neg rods 3. Hypophosphatemia - Continue to supplement phosphorus 4. Advanced Alzheimer dementia - Continue Seroquel 5. Hypertension - Continue Norvasc Cozaar 6. Hyperlipidemia - Continue Crestor 7. Constipation - Continue Senna Visit type - Emergency Visit Emergency Visit: Yes ED Registration Date: 09/19/17 Care time: The patient presented to the Emergency Department on the above date and was hospitalized for further evaluation of their emergent condition. - New Patient This patient is new to me today: No - Critical Care Critical Care patient: No - Discharge Referral Referred to [facility] Med P.C.: No
[2017-09-20] MEDS: SENNOSIDES 8.6MG TABLET (FP) PO SCH (21:01)
[2017-09-20] MEDS: QUEtiapine FUMARATE 25 MG TABLET (FP) PO SCH (21:01)
[2017-09-20] MEDS: ROSUVASTATIN CA 10 MG TABLET (FP) PO SCH (21:02)
[2017-09-20] MEDS ORDERED: PT OWN MED DRAWER 7, Y5N ONE (21:04)
[2017-09-20] MEDS ORDERED: ROSUVASTATIN CA 40 MG TABLET PO SCH (22:00)
[2017-09-21 06:32] LABS: HEMATOCRIT 33.5 % (32.4-45.2); HEMOGLOBIN 11.5 GM/dL (10.7-15.3); MCH 28.7 pg (25.7-33.7); MCHC 34.3 g/dl (32.0-36.0); MEAN CELL VOLUME 83.8 fl (80-96); MEAN PLT VOLUME 9.2 fl (7.5-11.1); PLATELET COUNT 155 K/MM3 (134-434)
[2017-09-21 07:03] LABS: ANION GAP 5 (8-16); BLOOD UREA NITROGEN 9 mg/dL (7-18); CALCIUM 8.7 mg/dL (8.5-10.1); CHLORIDE 116 mmol/L (98-107); CO2 27 mmol/L (21-32); CREATININE 0.9 mg/dL (0.55-1.02); GLUCOSE,RANDOM 100 mg/dL (74-106); POTASSIUM 4.4 mmol/L (3.5-5.1); SODIUM 148 mmol/L (136-145)
[2017-09-21] MEDS ORDERED: cefTRIAXone SODIUM 1 GM VIAL ONE (09:56)
[2017-09-21] MEDS ORDERED: DEXTROSE 5%-WATER - 50 ML IVPB ONE (09:57)
[2017-09-21] MEDS: ENOXAPARIN NA (PORCINE) 40 MG/0.4 ML DISP.SYRIN SQ SCH (11:03)
[2017-09-21] MEDS: LOSARTAN POTASSIUM 50 MG TABLET (FP) PO SCH (11:03)
[2017-09-21] MEDS: ASPIRIN COATED 81 MG TABLET.EC PO SCH (11:03)
[2017-09-21] MEDS: amLODIPine BESYLATE 5 MG TABLET (FP) PO SCH (11:03)
[2017-09-21] MEDS: NAPH,MB-DB/K PH,MBDB POWDER PACKET PO SCH (11:03)
[2017-09-21] MEDS: CHOLECALCIFEROL (VITAMIN D3) 1,000 UNIT TABLET (FP) PO SCH (11:03)
[2017-09-21] MEDS: CEFTRIAXONE 1 GM in DEXTROSE 5%-WATER - 50 ML IVPB SCH (11:03)
[2017-09-21] MEDS ORDERED: PT OWN MED DRAWER 7, Y5N ONE ×2 (11:05→16:48)
[2017-09-21] MEDS: levETIRAcetam 500 MG/5 ML ORAL SOLUTION (UNIT-DOSE CUPS) PO SCH ×2 (11:05→23:21)
--- NOTE | 2017-09-21 11:46 | CONSULT ---
Admitting History and Physical - Primary Care Physician PCP: Ed Chavarria - Admission History of Present Illness: This is an 82 year old woman with a history of HTN, hyperlipidemia, Alzheimer dementia, anemia, adrenal adenoma, constipation who presented to the ED from [facility] after having a seizure Selected Entries 09/21/17 09/21/17 09/21/17 02:00 06:00 07:47 Breakfast Diet Tolerated Fair Lunch 100% Supper 50% Temperature 98.1 F 97.7 F 09/21/17 11:11 Breakfast 50% Diet Tolerated Well Lunch Supper Temperature Laboratory Tests 09/19/17 09/20/17 09/21/17 08:00 06:00 06:00 WBC 11.0 H D 5.7 D 5.0 Per transfer summary, AR reports Dementia progressive Dysphagia. Diet order not noted on transfer papers. This is my first consult with this pt. History Source: Medical Record, Transfer Record Limitations to Obtaining History: Clinical Condition, Dementia - Past Medical History MAT MAN: Yes: Alzheimer's Cardiovascular: Yes: HTN, Hyperlipdemia Gastrointestinal: Yes: Other (small bowel obstruction repair) Hepatobiliary: Yes: Other (chronic elevation of transaminases; h/o small bowel obstruction s/p surgical repair) Heme/Onc: Yes: Anemia - Advance Directives Advance Directives: Yes: Health Care Proxy, DNR - Smoking History Smoking history: Unknown if ever smoked Have you smoked in the past 12 months: No - Alcohol/Substance Use Hx Alcohol Use: No History of Substance Use: reports: None History - Admission Reason For Visit: SEIZURE - Diagnostics CT Scan: Report Reviewed (severe, diffuse atrophy, ex vacuo hydrocephalus, and diffuse white matter microvascular changes) - General Mental Status: Awake and Alert, Confused (Euphoric. Laughing aloud. Good vocal quality. Non verbal) Attention: Distractible, Mild Impairment Ability to Follow Directions: Poor Head/Neck Control: Good - Hearing Hearing: Impaired Speech Evaluation - Communication Primary Language: ARMENIAN Communication: Yes: Non-Communicable Oral Expression Ability: Yes: Non-Verbal (vocal) - Speech Production Able to Make Needs Known: Yes: Severely Impaired - Language/Auditory Comprehension Observation: Able to respond to yes/no queries: No - Language/Verbal Expression Able to Respond to Simple Queries: Yes: Severely Impaired Able to Communicate Wants and Needs: Yes: Severely Impaired Functional Communication Status: Yes: Severely Impaired - Memory/Perception rn long term care Memory: Yes: Severely Impaired Short Term Memory: Yes: Severely Impaired - Swallow Evaluation/Bedside Assessment Current Nutritional Intake: Dysphagia Pureed, [place] Textured Liquids Oral Secretions: Yes: WFL Dentition: Yes: Edentulous Facial Symmetry at Rest: Symmetrical Facial Symmetry on Retraction: Symmetrical Smile: Normal Lingual Movement: Symmetric Velopharyngeal Movement: Normal Laryngeal Movement: Labored,delay initiation Rate of Intake: Slow/Holding (especially with whole pills) Oral Prep Time: Increased Timing of Swallow: Delayed Coughing/Throat Clear: No Change in Voice: No Recommendations - Speech Evaluation, Impression/Plan Impression: Euphoric. Laughing aloud. Good vocal quality. Non verbal. Readily accepts puree and nectar thick lioquid without difficulty. With trial of thin liquid, pt with tongue thrust after single sip, seemingly protecting airway, with delayed but brisk swallow.Suspect spillage over base of tongue with heber- pharungeal dyscoordination. - Disposition Discharge to: Long-Term Facility - Dysphagia Impressions/Plan Swallowing Skills: Impaired Dysphagia Impressions: Mild Impairment *Silent aspiration: cannot be R/O at bedside Dysphagia Treatment Plan: Small Bites, Chin Tuck/Down, 1/2 tsp. at a time, Elevate HOB during feed, Other (alternate puree with liquids to reduce oral holding. Free water protocol b/n meals) - Recommendations Diet Consistency: Dysphagia Pureed Medication Administration: Crushed with applesauce Liquids: [place] Thick Supplement: Magic Cup, Other (ensure compact)
--- NOTE | 2017-09-21 17:53 | PN ---
Teaching Attending Note Name of Resident: Adonay Hernandez ATTENDING PHYSICIAN STATEMENT I saw and evaluated the patient. I reviewed the resident's note and discussed the case with the resident. I agree with the resident's findings and plan as documented. SUBJECTIVE: Patient is awake. Appears comfortable. OBJECTIVE: Vital Signs Period Temp Pulse Resp BP Sys/Freeman Pulse Ox Last 24 Hr 97.6 F-98.7 F 50-65 18-20 105-157/58-79 94-95 HEART: S1S2, RRR LUNGS: Clear ABDOMEN: Soft, non-distended, normal BS EXTREMITIES: No edema Laboratory Results - last 24 hr 09/20/17 09/20/17 09/21/17 16:51 21:00 03:18 WBC RBC Hgb Hct MCV MCH MCHC RDW Plt Count MPV Sodium Potassium Chloride Carbon Dioxide Anion Gap BUN Creatinine POC Glucometer 120 119 109 Random Glucose Calcium 09/21/17 09/21/17 09/21/17 06:00 06:00 06:29 WBC 5.0 RBC 4.00 Hgb 11.5 Hct 33.5 MCV 83.8 MCH 28.7 MCHC 34.3 RDW 14.0 Plt Count 155 MPV 9.2 Sodium 148 H Potassium 4.4 Chloride 116 H Carbon Dioxide 27 Anion Gap 5 L BUN 9 Creatinine 0.9 POC Glucometer 108 Random Glucose 100 Calcium 8.7 Current Medications Generic Name Dose Route Start Last Admin Trade Name Freq PRN Reason Stop Dose Admin Amlodipine Besylate 5 mg 09/20/17 10:00 09/21/17 11:03 Norvasc - PO 5 mg DAILY ANTHONY Administration Aspirin 81 mg 09/20/17 10:00 09/21/17 11:03 Ecotrin - PO 81 mg DAILY ANTHONY Administration Cholecalciferol 2,000 unit 09/20/17 10:00 09/21/17 11:03 Vitamin D3 - PO 2,000 unit DAILY ANTHONY Administration Enoxaparin Sodium 40 mg 09/20/17 10:00 09/21/17 11:03 Lovenox - SQ 40 mg DAILY ANTHONY Administration Ceftriaxone Sodium 1 gm/ 50 mls @ 200 mls/hr 09/20/17 10:00 09/21/17 11:03 Dextrose IVPB 200 mls/hr DAILY ANTHONY Administration Dextrose/Sodium Chloride 1,000 mls @ 100 mls/hr 09/20/17 05:15 09/20/17 17:06 D5-1/2ns - IV 100 mls/hr ASDIR ANTHONY Administration Levetiracetam 250 mg 09/19/17 22:00 09/21/17 11:05 Keppra Oral Solution - PO 250 mg BID ANTHONY Administration Losartan Potassium 50 mg 09/20/17 10:00 09/21/17 11:03 Cozaar - PO 50 mg DAILY ANTHONY Administration Potassium Phos/Sodium Phos 1 packet 09/19/17 22:00 09/21/17 11:03 Phos-Nak Packet - PO 09/21/17 21:59 1 packet BID ANTHONY Administration Quetiapine Fumarate 12.5 mg 09/19/17 22:00 09/20/17 21:01 Seroquel - PO 12.5 mg HS ANTHONY Administration Rosuvastatin Calcium 10 mg 09/20/17 22:00 09/20/17 21:02 Crestor - PO 10 mg HS ANTHONY Administration Senna 1 tab 09/19/17 22:00 09/20/17 21:01 Senna - PO 1 tab HS ANTHONY Administration ASSESSMENT AND PLAN: This is an 82 year old woman with a history of HTN, hyperlipidemia, Alzheimer dementia, anemia, adrenal adenoma, constipation who presented to the ED from [facility] after having a seizure. 1. 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 E. coli UTI - Continue Rocephin (day 3) 3. Hypophosphatemia - Continue to supplement phosphorus 4. Advanced Alzheimer dementia - Continue Seroquel 5. Hypertension - Continue Norvasc, Cozaar 6. Hyperlipidemia - Continue Crestor 7. Constipation - Continue Senna
--- NOTE | 2017-09-21 20:32 | PN ---
Physical Exam: SUBJECTIVE: Patient seen and examined at bedside. Patient appears comfortable. Patient laughs w/ verbal stimulation. No events overnight. OBJECTIVE: Vital Signs Period Temp Pulse Resp BP Sys/Freeman Pulse Ox Last 24 Hr 97.6 F-98.4 F 50-65 18-20 105-157/58-74 94-95 GENERAL: The patient is awake, alert. No response to questions. Laughs when talked to. At baseline mental status per nursing records. HEAD: Normal with no signs of trauma. NECK: Trachea midline, full range of motion, supple. LUNGS: Breath sounds equal, clear to auscultation bilaterally, no wheezes, no crackles, no accessory muscle use. HEART: Regular rate and rhythm, S1, S2 without murmur, rub or gallop. ABDOMEN: Soft, nontender, nondistended, normoactive bowel sounds, no guarding, no rebound, no hepatosplenomegaly, no masses. EXTREMITIES: 2+ pulses, warm, well-perfused, no edema. NEUROLOGICAL: Cranial nerves II through X grossly intact. Normal speech, gait not observed. SKIN: Warm, dry, normal turgor, no rashes or lesions noted Laboratory Results - last 24 hr 09/20/17 09/21/17 09/21/17 21:00 03:18 06:00 WBC 5.0 RBC 4.00 Hgb 11.5 Hct 33.5 MCV 83.8 MCH 28.7 MCHC 34.3 RDW 14.0 Plt Count 155 MPV 9.2 Sodium Potassium Chloride Carbon Dioxide Anion Gap BUN Creatinine POC Glucometer 119 109 Random Glucose Calcium 09/21/17 09/21/17 06:00 06:29 WBC RBC Hgb Hct MCV MCH MCHC RDW Plt Count MPV Sodium 148 H Potassium 4.4 Chloride 116 H Carbon Dioxide 27 Anion Gap 5 L BUN 9 Creatinine 0.9 POC Glucometer 108 Random Glucose 100 Calcium 8.7 Active Medications Generic Name Dose Route Start Last Admin Trade Name Freq PRN Reason Stop Dose Admin Amlodipine Besylate 5 mg 09/20/17 10:00 09/21/17 11:03 Norvasc - PO 5 mg DAILY ANTHONY Administration Aspirin 81 mg 09/20/17 10:00 09/21/17 11:03 Ecotrin - PO 81 mg DAILY ANTHONY Administration Cholecalciferol 2,000 unit 09/20/17 10:00 09/21/17 11:03 Vitamin D3 - PO 2,000 unit DAILY ANTHONY Administration Enoxaparin Sodium 40 mg 09/20/17 10:00 09/21/17 11:03 Lovenox - SQ 40 mg DAILY ANTHONY Administration Ceftriaxone Sodium 1 gm/ 50 mls @ 200 mls/hr 09/20/17 10:00 09/21/17 11:03 Dextrose IVPB 200 mls/hr DAILY ANTHONY Administration Dextrose/Sodium Chloride 1,000 mls @ 100 mls/hr 09/20/17 05:15 09/20/17 17:06 D5-1/2ns - IV 100 mls/hr ASDIR ANTHONY Administration Levetiracetam 250 mg 09/19/17 22:00 09/21/17 11:05 Keppra Oral Solution - PO 250 mg BID ANTHONY Administration Losartan Potassium 50 mg 09/20/17 10:00 09/21/17 11:03 Cozaar - PO 50 mg DAILY ANTHONY Administration Potassium Phos/Sodium Phos 1 packet 09/19/17 22:00 09/21/17 11:03 Phos-Nak Packet - PO 09/21/17 21:59 1 packet BID ANTHONY Administration Quetiapine Fumarate 12.5 mg 09/19/17 22:00 09/20/17 21:01 Seroquel - PO 12.5 mg HS ANTHONY Administration Rosuvastatin Calcium 10 mg 09/20/17 22:00 09/20/17 21:02 Crestor - PO 10 mg HS ANTHONY Administration Senna 1 tab 09/19/17 22:00 09/20/17 21:01 Senna - PO 1 tab HS ANTHONY Administration ASSESSMENT/PLAN: This is an 82 year old woman with a history of HTN, hyperlipidemia, Alzheimer dementia, anemia, adrenal adenoma, constipation who is admitted for the workup of a seizure and treatment of a UTI # new onset Seizure -no seizure activity since admission -Continue Keppra -MRI shows no acute infarct and chronic changes -Neurology onboard -monitor on tele #UTI -Ucx growing E.Coli -C/w Rocephin (day 3) #Hypophosphatemia -repleting -monitor lytes #Alzheimer dementia -nonverbal at baseline -c/w home Seroquel #HTN -c/w home Norvasc -c/w home Cozaar #HLD -c/w home Crestor #Chronic Constipation -c/w senna #FEN -no fluid indicated -monitor and replete lytes as above -sodium controlled puree diet w/ nectar liquids; speech and swallow eval #Prophy -lovenox 40 sq daily #Dispo -admit to tele Visit type - Emergency Visit Emergency Visit: Yes ED Registration Date: 09/19/17 Care time: The patient presented to the Emergency Department on the above date and was hospitalized for further evaluation of their emergent condition. - New Patient This patient is new to me today: Yes Date on this admission: 09/21/17 - Critical Care Critical Care patient: No
[2017-09-21] MEDS: SENNOSIDES 8.6MG TABLET (FP) PO SCH (23:20)
[2017-09-21] MEDS: QUEtiapine FUMARATE 25 MG TABLET (FP) PO SCH (23:20)
[2017-09-21] MEDS: ROSUVASTATIN CA 10 MG TABLET (FP) PO SCH (23:21)
[2017-09-21] MEDS: DEXTROSE 5%-0.45% SALINE 1,000 ML IV SCH (23:43)
[2017-09-22 08:10] LABS: ANION GAP 6 (8-16); BLOOD UREA NITROGEN 11 mg/dL (7-18); CALCIUM 8.5 mg/dL (8.5-10.1); CHLORIDE 115 mmol/L (98-107); CO2 26 mmol/L (21-32); GLUCOSE,RANDOM 108 mg/dL (74-106); MAGNESIUM 2.2 mg/dL (1.8-2.4); PHOSPHOROUS 3.1 mg/dL (2.5-4.9); POTASSIUM 4.2 mmol/L (3.5-5.1); SODIUM 147 mmol/L (136-145)
[2017-09-22 08:34] LABS: HEMOGLOBIN 11.1 GM/dL (10.7-15.3); MCH 28.9 pg (25.7-33.7); MCHC 34.5 g/dl (32.0-36.0); MEAN CELL VOLUME 83.6 fl (80-96); MEAN PLT VOLUME 9.6 fl (7.5-11.1); PLATELET COUNT 141 K/MM3 (134-434); RBC 3.83 M/mm3 (3.60-5.2); WHITE BLOOD COUNT 6.5 K/mm3 (4.0-10.0)
--- NOTE | 2017-09-22 09:18 | PN ---
Physical Exam: SUBJECTIVE: Patient seen and examined OBJECTIVE: Vital Signs Period Temp Pulse Resp BP Sys/Freeman Pulse Ox Last 24 Hr 97.6 F-98.4 F 50-73 20-20 101-142/54-73 95-95 GENERAL: The patient is awake, alert, and fully oriented, in no acute distress. HEAD: Normal with no signs of trauma. EYES: PERRL, extraocular movements intact, sclera anicteric, conjunctiva clear. No ptosis. ENT: Ears normal, nares patent, oropharynx clear without exudates, moist mucous membranes. NECK: Trachea midline, full range of motion, supple. LUNGS: Breath sounds equal, clear to auscultation bilaterally, no wheezes, no crackles, no accessory muscle use. HEART: Regular rate and rhythm, S1, S2 without murmur, rub or gallop. ABDOMEN: Soft, nontender, nondistended, normoactive bowel sounds, no guarding, no rebound, no hepatosplenomegaly, no masses. EXTREMITIES: 2+ pulses, warm, well-perfused, no edema. NEUROLOGICAL: Cranial nerves II through XII grossly intact. Normal speech, gait not observed. PSYCH: Normal mood, normal affect. SKIN: Warm, dry, normal turgor, no rashes or lesions noted Laboratory Results - last 24 hr 09/22/17 09/22/17 07:00 07:00 WBC 6.5 RBC 3.83 Hgb 11.1 Hct 32.0 L MCV 83.6 MCH 28.9 MCHC 34.5 RDW 14.0 Sodium 147 H Potassium 4.2 Chloride 115 H Carbon Dioxide 26 Anion Gap 6 L BUN 11 Creatinine 1.0 Random Glucose 108 H Calcium 8.5 Phosphorus 3.1 Magnesium 2.2 Active Medications Generic Name Dose Route Start Last Admin Trade Name Freq PRN Reason Stop Dose Admin Amlodipine Besylate 5 mg 09/20/17 10:00 09/21/17 11:03 Norvasc - PO 5 mg DAILY ANTHONY Administration Aspirin 81 mg 09/20/17 10:09/21/17 11:03 Ecotrin - PO 81 mg DAILY ANTHONY Administration Cholecalciferol 2,000 unit 09/20/17 10:00 09/21/17 11:03 Vitamin D3 - PO 2,000 unit DAILY ANTHONY Administration Enoxaparin Sodium 40 mg 09/20/17 10:00 09/21/17 11:03 Lovenox - SQ 40 mg DAILY ANTHONY Administration Ceftriaxone Sodium 1 gm/ 50 mls @ 200 mls/hr 09/20/17 10:00 09/21/17 11:03 Dextrose IVPB 200 mls/hr DAILY ANTHONY Administration Dextrose/Sodium Chloride 1,000 mls @ 100 mls/hr 09/20/17 05:15 09/21/17 23:43 D5-1/2ns - IV 100 mls/hr ASDIR ANTHONY Administration Levetiracetam 250 mg 09/19/17 22:00 09/21/17 23:21 Keppra Oral Solution - PO 250 mg BID ANTHONY Administration Losartan Potassium 50 mg 09/20/17 10:00 09/21/17 11:03 Cozaar - PO 50 mg DAILY ANTHONY Administration Quetiapine Fumarate 12.5 mg 09/19/17 22:00 09/21/17 23:20 Seroquel - PO 12.5 mg HS ANTHONY Administration Rosuvastatin Calcium 10 mg 09/20/17 22:00 09/21/17 23:21 Crestor - PO 10 mg HS ANTHONY Administration Senna 1 tab 09/19/17 22:00 09/21/17 23:20 Senna - PO 1 tab HS ANTHONY Administration ASSESSMENT/PLAN: This is an 82 year old woman with a history of HTN, hyperlipidemia, Alzheimer dementia, anemia, adrenal adenoma, constipation who is admitted for the workup of a seizure and treatment of a UTI # new onset Seizure -no seizure activity since admission -Continue Keppra -MRI shows no acute infarct and chronic changes -Neurology onboard -monitor on tele #UTI -Ucx growing E.Coli -C/w Rocephin (day 4) #Hypophosphatemia -repleting -monitor lytes #Alzheimer dementia -nonverbal at baseline -c/w home Seroquel #HTN -c/w home Norvasc -c/w home Cozaar #HLD -c/w home Crestor #Chronic Constipation -c/w senna #FEN -no fluid indicated -monitor and replete lytes as above -sodium controlled puree diet w/ nectar liquids; speech and swallow eval #Prophy -lovenox 40 sq daily #Dispo -admit to tele
--- NOTE | 2017-09-22 10:18 | PN ---
Progress Note, [employer] - Note Progress Note: Selected Entries 09/21/17 09/21/17 09/21/17 07:47 10:00 11:11 Breakfast 50% 50% Lunch 100% Supper 50% Temperature 09/21/17 09/22/17 09/22/17 19:45 01:00 07:48 Breakfast Lunch Supper 100% 100% Temperature 98.0 F Tolerating puree/nectar without difficulty. Continue to crush meds. No further f/u indicated. Consider free water protocol, b/n meals in NH.
[2017-09-22] MEDS ORDERED: cefTRIAXone SODIUM 1 GM VIAL ONE (10:22)
[2017-09-22] MEDS ORDERED: DEXTROSE 5%-WATER - 50 ML IVPB ONE (10:22)
[2017-09-22] MEDS: DEXTROSE 5%-0.45% SALINE 1,000 ML IV SCH (10:28)
[2017-09-22] MEDS: LOSARTAN POTASSIUM 50 MG TABLET (FP) PO SCH (10:29)
[2017-09-22] MEDS: ENOXAPARIN NA (PORCINE) 40 MG/0.4 ML DISP.SYRIN SQ SCH (10:31)
[2017-09-22] MEDS: ASPIRIN COATED 81 MG TABLET.EC PO SCH (10:31)
[2017-09-22] MEDS: amLODIPine BESYLATE 5 MG TABLET (FP) PO SCH (10:32)
[2017-09-22] MEDS: CEFTRIAXONE 1 GM in DEXTROSE 5%-WATER - 50 ML IVPB SCH (10:32)
[2017-09-22] MEDS: CHOLECALCIFEROL (VITAMIN D3) 1,000 UNIT TABLET (FP) PO SCH (10:34)
[2017-09-22] MEDS ORDERED: PT OWN MED DRAWER 7, Y5N ONE (10:47)
[2017-09-22] MEDS ORDERED: ASPIRIN 81 MG CHEWABLE TABLETS ONE (10:47)
[2017-09-22] MEDS: levETIRAcetam 500 MG/5 ML ORAL SOLUTION (UNIT-DOSE CUPS) PO SCH (10:51)
[2017-09-22] MEDS ORDERED: ASPIRIN 81 MG CHEWABLE TABLETS PO SCH (11:30)
--- NOTE | 2017-09-22 14:00 | DS ---
Physical Exam: SUBJECTIVE: Patient seen and examined at baseline. No new complaints. no events overnight. OBJECTIVE: Vital Signs Period Temp Pulse Resp BP Sys/Freeman Pulse Ox Last 24 Hr 97.6 F-98.0 F 50-73 20-20 101-133/54-70 95 PHYSICAL EXAM GENERAL: The patient is sleepy but easily arousable. No response to questions. At baseline mental status per nursing records. HEAD: Normal with no signs of trauma. NECK: Trachea midline, full range of motion, supple. LUNGS: Breath sounds equal, clear to auscultation bilaterally, no wheezes, no crackles, no accessory muscle use. HEART: Regular rate and rhythm, S1, S2 without murmur, rub or gallop. ABDOMEN: Soft, nontender, nondistended, normoactive bowel sounds, no guarding, no rebound, no hepatosplenomegaly, no masses. EXTREMITIES: 2+ pulses, warm, well-perfused, no edema. NEUROLOGICAL: Cranial nerves II through X grossly intact. Normal speech, gait not observed. SKIN: Warm, dry, normal turgor, no rashes or lesions noted LABS Laboratory Results - last 24 hr 09/22/17 09/22/17 07:00 07:00 WBC 6.5 RBC 3.83 Hgb 11.1 Hct 32.0 L MCV 83.6 MCH 28.9 MCHC 34.5 RDW 14.0 Plt Count 141 MPV 9.6 Platelet Comment No clumping noted Sodium 147 H Potassium 4.2 Chloride 115 H Carbon Dioxide 26 Anion Gap 6 L BUN 11 Creatinine 1.0 Random Glucose 108 H Calcium 8.5 Phosphorus 3.1 Magnesium 2.2 HOSPITAL COURSE: Date of Admission:09/19/17 The patient is a 82 yo f w/ PMH HTN, HLD, alzheimers dementia who was BIBA for generalized seizure. In the ED, she was found to have a leukocytosis to 11, and a UA indicative of UTI. The patient was admitted for the workup and treatment of a new onset seizure as well as the treatment of a UTI. Neurology was consulted. The patient was placed on keppra. A speech and swallow consult was requested. An MRI of the head showed changes consistent with Alzheimer dementia and no acute changes. A Cspine CT showed no acute fracture, but chronic foraminal stenosis. The patient was treated with 4 days of Rocephin and normal saline. The patient improved clinically and had no other episodes of seizure activity. The patient was discharged home on Keflex 500mg BID for 4 additional days as well as Keppra 250mg BID. Instructions were included to follow up with her PCP as well as a neurologist within 1 week of discharge home. Date of Discharge: 09/22/17 Minutes to complete discharge: 50 Discharge Summary Reason For Visit: SEIZURE Current Active Problems Alzheimer's dementia (Acute) Cystitis (Acute) HLD (hyperlipidemia) (Acute) HTN (hypertension) (Acute) Seizure (Acute) Condition: Improved - Instructions Diet, Activity, Other Instructions: You were admitted for the treatment of your seizure and for the treatment of your urinary tract infection. We are sending you home on an antibiotic to help fight the infection in your urine. This antibiotic is called Keflex. You should take 500mg of this medication twice per day for the next 4 days. Please take your medication as prescribed for the agricultural specialist that it is prescribed, even if you feel better. We are also starting you on a new medication to help with your seizures. This medication is called Keppra. You should take 250mg of this medication twice per day. You should follow up with a neurologist after you are discharged. Information for Dr. Arciniega, who saw you during your hospital stay, has been included in your discharge papers. Please call to make an appointment. You should follow up with your primary care physician within 1 week of discharge. If you begin to experience chest pain, shortness of breath, fevers, chills, breakthrough seizures or if any of your symptoms get worse, please call your doctor or return to the emergency department. Referrals: Benigno Arciniega MD [Staff Physician] - Yana Orozco MD [Primary Care Provider] - Disposition: ASSISTED FACILITY - Home Medications Comprehensive Discharge Medication List: Ambulatory Orders RX: Amlodipine Besylate 5 mg PO DAILY 09/19/17 RX: Cholecalciferol (Vitamin D3) [Vitamin D3] 2,000 unit PO DAILY 09/19/17 RX: Losartan Potassium 50 mg PO DAILY 09/19/17 RX: Quetiapine Fumarate [Seroquel -] 12.5 mg PO HS 09/19/17 RX: Rosuvastatin [Crestor -] 10 mg PO DAILY 09/19/17 RX: Sennosides [Senna Laxative] 17.2 mg PO HS 09/19/17 Cephalexin [Keflex] 500 mg PO BID #8 capsule 09/22/17 RX: Aspirin [ASA -] 81 mg PO DAILY tab.chew 09/22/17 RX: levETIRAcetam [Keppra Oral Solution -] 250 mg PO BID cup 09/22/17 This patient is new to me today: No Emergency Visit: Yes ED Registration Date: 09/19/17 Care time: The patient presented to the Emergency Department on the above date and was hospitalized for further evaluation of their emergent condition. Critical Care patient: No - Discharge Referral Referred to [facility] Med P.C.: No
[2017-09-22 15:46] VITALS: BP 127/65; PULSE 63; TEMP 98.4
--- NOTE | 2017-09-22 17:25 | PN ---
Teaching Attending Note Name of Resident: Adonay Hernandez ATTENDING PHYSICIAN STATEMENT I saw and evaluated the patient. I reviewed the resident's note and discussed the case with the resident. I agree with the resident's findings and plan as documented. SUBJECTIVE: Patient appears comfortable. OBJECTIVE: Vital Signs Period Temp Pulse Resp BP Sys/Freeman Pulse Ox Last 24 Hr 98.0 F-98.4 F 50-73 20-20 101-127/54-66 92-95 HEART: S1S2, RRR LUNGS: Clear ABDOMEN: Soft, non-distended, normal BS EXTREMITIES: No edema Laboratory Results - last 24 hr 09/22/17 09/22/17 07:00 07:00 WBC 6.5 RBC 3.83 Hgb 11.1 Hct 32.0 L MCV 83.6 MCH 28.9 MCHC 34.5 RDW 14.0 Plt Count 141 MPV 9.6 Platelet Comment No clumping noted Sodium 147 H Potassium 4.2 Chloride 115 H Carbon Dioxide 26 Anion Gap 6 L BUN 11 Creatinine 1.0 Random Glucose 108 H Calcium 8.5 Phosphorus 3.1 Magnesium 2.2 ASSESSMENT AND PLAN: This is an 82 year old woman with a history of HTN, hyperlipidemia, Alzheimer dementia, anemia, adrenal adenoma, constipation who presented to the ED from [facility] after having a seizure. 1. 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 E. coli UTI - Continue Rocephin (day 4) - change to Keflex at discharge 3. Hypophosphatemia - Improved 4. Advanced Alzheimer dementia - Continue Seroquel 5. Hypertension - Continue Norvasc, Cozaar 6. Hyperlipidemia - Continue Crestor 7. Constipation - Continue Senna 8. Disposition - Discharge to SNF - [facility]
== END 2017-09-22 16:42 | DRG 101 ==
LOC: JER 06:44 → JERBED 10:27 → J4W 11:29
PROVIDERS: ADMIT Internal Medicine; ATTEND Internal Medicine
DX: R56.9 Unspecified convulsions (principal); N39.0 Urinary tract infection, site not specified; J98.11 Atelectasis; G30.9 Alzheimer's disease, unspecified; F02.80 Dementia in other diseases classified elsewhere, unspecified severity, without behavioral disturbance, psychotic disturbance, mood disturbance, and anxiety; I10 Essential (primary) hypertension; E78.5 Hyperlipidemia, unspecified; F03.90 Unspecified dementia, unspecified severity, without behavioral disturbance, psychotic disturbance, mood disturbance, and anxiety; E83.39 Other disorders of phosphorus metabolism; K59.00 Constipation, unspecified; B96.20 Unspecified Escherichia coli [E. coli] as the cause of diseases classified elsewhere; R13.10 Dysphagia, unspecified
CPT/HCPCS: 36415; 70450-TC; 70551-TC; 71045-TC-FY; 72125-TC; 80048; 80053; 80061; 81003; 81015; 82550; 82607; 82962; 83036; 83605; 83690; 83721; 83735; 84100; 84439; 84443; 84484; 85025; 85027; 85610; 85651; 86140; 86593; 87040; 87086; 87186; 93005; 93010; 93306-TC; 97116-GP; 97161-GP; 99285-25; J7030

== ENCOUNTER 2017-12-02 23:07 | Inpatient (IN) | payer OTHER ==
[2017-12-03 00:01] LABS: URINE APPEARANCE CLOUDY; URINE BILIRUBIN NEGATIVE (<2.0 mg/dL); URINE COLOR YELLOW; URINE GLUCOSE (UA) NEGATIVE (NEGATIVE); URINE KETONE NEGATIVE (NEGATIVE); URINE NITRITE POSITIVE (NEGATIVE); URINE PROTEIN NEGATIVE (NEGATIVE); URINE UROBILINOGEN NEGATIVE mg/dL (0.2-1.0)
[2017-12-03 00:08] LABS: URINE LEUK ESTERASE 3+ (NEGATIVE)
--- NOTE | 2017-12-03 00:09 | PDOC ---
History of Present Illness - General Chief Complaint: Dysphagia Stated Complaint: VOMITING Time Seen by Provider: 12/03/17 00:08 History Source: Jail Records Exam Limitations: Dementia - History of Present Illness Initial Comments: 12/03/17 01:51 Patient is an 82-year-old female with past medical history of HLD, HTN, Alzheimer's who presents to the emergency department today for suspected aspiration pneumonia per alf. Per records patient has been spitting up/ vomiting her pured diet. They now state that she has had some cough and they are concerned that she may have pneumonia. Patient unable to provide ROS due to dementia. Past History - Travel Traveled outside of the country in the last 30 days: No Close contact w/someone who was outside of country & ill: No - Past Medical History Allergies/Adverse Reactions: Allergies Allergy/AdvReac Type Severity Reaction Status Date / Time No Known Allergies Allergy Verified 09/19/17 07:12 Home Medications: Ambulatory Orders Cholecalciferol (Vitamin D3) [Vitamin D3] 2,000 unit PO DAILY 09/19/17 Quetiapine Fumarate [Seroquel -] 25 mg PO HS 09/19/17 Rosuvastatin [Crestor -] 10 mg PO DAILY 09/19/17 Sennosides [Senna Laxative] 17.2 mg PO HS 09/19/17 levETIRAcetam [Keppra Oral Solution -] 250 mg PO BID cup 09/22/17 Amlodipine Besylate [Norvasc -] 5 mg PO DAILY 12/03/17 Aspirin Coated [Ecotrin -] 81 mg PO DAILY 12/03/17 Losartan Potassium [Cozaar -] 50 mg PO DAILY 12/03/17 Anemia: Yes COPD: No Dementia: Yes GI Disorders: Yes (CONSTIPATION HX) HTN: Yes Hypercholesterolemia: Yes Psychiatric Problems: Yes (depression, anxiety) - Surgical History Abdominal Surgery: Yes (bowel obstruction) - Immunization History Td Vaccination: Yes TDAP Vaccination: Yes Immunization Up to Date: Yes - Suicide/Smoking/Psychosocial Hx Smoking History: Unknown if ever smoked Have you smoked in the past 12 months: No Hx Alcohol Use: No Drug/Substance Use Hx: No Substance Use Type: None Hx Substance Use Treatment: No Review of Systems - Review of Systems Able to Perform ROS?: No (d/t dementia) *Physical Exam - Vital Signs Last Vital Signs Temp Pulse Resp BP Pulse Ox 98.9 F 89 20 117/69 94 L 12/02/17 23:07 12/02/17 23:07 12/02/17 23:07 12/02/17 23:07 12/02/17 23:07 - Physical Exam Comments: 12/03/17 01:56 GENERAL: Well developed, well nourished. Awake and alert at baseline, non-verbal. No acute distress. HEENT: Normocephalic, atraumatic. PERRLA, EOMI. No conjunctival pallor. Sclera are non- icteric. Moist mucous membranes. Oropharynx is clear. NECK: Supple. Full ROM. No JVD. Carotid pulses 2+ and symmetric, without bruits. No thyromegaly. No lymphadenopathy. CARDIOVASCULAR: Regular rate and rhythm. No murmurs, rubs, or gallops. Distal pulses are 2+ and symmetric. PULMONARY: No evidence of respiratory distress. Lungs clear to auscultation bilaterally. No wheezing, rales or rhonchi. ABDOMINAL: Soft. Non-tender. Non-distended. No rebound or guarding. No organomegaly. Normoactive bowel sounds. MUSCULOSKELETAL Normal range of motion at all joints. No bony deformities or tenderness. No CVA tenderness. EXTREMITIES: No cyanosis. No clubbing. No edema. No calf tenderness. SKIN: Warm and dry. Normal capillary refill. No rashes. No jaundice. NEUROLOGICAL: Alert, awake, at baseline. Toes are down-going bilaterally. Pt is bed bound PSYCHIATRIC: Cooperative. Good eye contact. Appropriate mood and affect. ED Treatment Course - LABORATORY CBC & Chemistry Diagram: 12/03/17 00:30 12/03/17 00:30 - ADDITIONAL ORDERS Additional order review: Laboratory Results 12/02/17 23:48 Urine Color Yellow Urine Appearance Cloudy Urine pH 5.0 Ur Specific [place] 1.016 Urine Protein Negative Urine Glucose (UA) Negative Urine Ketones Negative Urine Blood Negative Urine Nitrite Positive Urine Bilirubin Negative Urine Urobilinogen Negative Ur Leukocyte Esterase 3+ H Medical Decision Making - Medical Decision Making 12/03/17 03:28 Patient is an 82-year-old female past medical history hypertension hyperlipidemia, Alzheimer's nonverbal, seizure disorder who presents to emergency department for concerns of aspiration pneumonia. On exam lung sounds are clear to auscultation with fair aeration to the bases. Abdomen is soft and nontender. No rebound or guarding noted. Lab work shows a UTI with 3+ leuks, positive nitrites. No leukocytosis however there is a left shift. Patient also with elevated liver enzymes. X-ray shows questionable infiltrates to the right lower lobe. O2 sat currently 94 ORA. Given UTI, possible aspiration pneumonia as well as elevated liver enzymes we'll place patient for admission. Patient given 750 mg of Levaquin. Case discussed with AUDRA Barba who agrees with admission at this time. We'll place patient to [facility]. EKG: Rate 67 bpm, normal sinus rhythm, normal axis normal intervals. No acute ST -T wave changes. RSR' in V2,V2 *DC/Admit/Observation/Transfer Diagnosis at time of Disposition: Pancreatic abnormality Dementia Qualifiers: Dementia type: Alzheimer's disease Alzheimer's disease onset: unspecified onset Dementia behavioral disturbance: without behavioral disturbance Qualified Code(s): G30.9 - Alzheimer's disease, unspecified Pneumonia Qualifiers: Pneumonia type: due to unspecified organism Laterality: right Lung location: lower lobe of lung Qualified Code(s): J18.1 - Lobar pneumonia, unspecified organism UTI (urinary tract infection) Qualifiers: Urinary tract infection type: acute cystitis Hematuria presence: without hematuria Qualified Code(s): N30.00 - Acute cystitis without hematuria - Discharge Dispostion Condition at time of disposition: Guarded Decision to Admit order: Yes - Referrals - Patient Instructions - Post Discharge Activity
[2017-12-03 00:10] LABS: URINE BACTERIA MODERATE /hpf (NONE SEEN); URINE MUCUS RARE
[2017-12-03 00:45] LABS: BASO % 0.4 % (0-2.0); EOS % 0.1 % (0-4.5); HEMOGLOBIN 11.6 GM/dL (10.7-15.3); LYMPH % 7.8 % (8-40); MCH 28.1 pg (25.7-33.7); MCHC 33.3 g/dl (32.0-36.0); MEAN CELL VOLUME 84.5 fl (80-96); MEAN PLT VOLUME 8.9 fl (7.5-11.1); MONO % 5.2 % (3.8-10.2); NEUT % 86.5 % (42.8-82.8); PLATELET COUNT 160 K/MM3 (134-434); RBC 4.14 M/mm3 (3.60-5.2); RDW 14.3 % (11.6-15.6)
[2017-12-03 00:57] LABS: PROTHROMBIN TIME (PATIENT) 11.3 SEC (9.7-13.0)
[2017-12-03 01:08] LABS: ALK PHOS 209 U/L (45-117); ANION GAP 6 (8-16); BILIRUBIN,TOTAL 0.3 mg/dL (0.2-1.0); BLOOD UREA NITROGEN 22 mg/dL (7-18); CALCIUM 8.6 mg/dL (8.5-10.1); CHLORIDE 107 mmol/L (98-107); CO2 26 mmol/L (21-32); CREATININE 1.1 mg/dL (0.55-1.02); GLUCOSE,RANDOM 147 mg/dL (74-106); SGOT/AST 65 U/L (15-37); SGPT/ALT 103 U/L (12-78); SODIUM 139 mmol/L (136-145); TOT PROT 6.5 g/dl (6.4-8.2)
[2017-12-03 01:15] LABS: LIPASE 62 U/L (73-393)
[2017-12-03] MEDS ORDERED: CEFTRIAXONE 1,000 MG in DEXTROSE 5%-WATER - 50 ML IVPB ONE (04:51)
[2017-12-03] MEDS ORDERED: ACETAMINOPHEN 1000 MG/100 ML VIAL (NON FORMULARY) IVPB ONE (04:54)
--- NOTE | 2017-12-03 04:54 | HP ---
CHIEF COMPLAINT: vomiting [facility] HISTORY OF PRESENT ILLNESS: This is an 82 year old female with a significant past medical history of UTI, PNA, dementia, HTN, HLD who presented to the ED from her adult home with vomiting after eating her puree diet and cough. Staff were concerned for aspiration pneumonia. Pt is nonverbal and history is obtained from the [place] chart , ED chart and previous visits. ER course was notable for: (1) WBC 10.0 (2) u/a c/w UTI Recent Travel: none PAST MEDICAL HISTORY: UTI 2015, 09/2017, PNA 2016, seizures, dementia, HTN, HLD, chronic constipation, elevated LFTs PAST SURGICAL HISTORY: WICHO SBO repair Social History: Smoking: none as per previous charts Alcohol:none as per previous charts Drugs: none as per previous charts Family History: unk Allergies No Known Allergies Allergy (Verified 09/19/17 07:12) HOME MEDICATIONS: 3 Medication Instructions Recorded Cholecalciferol (Vitamin D3) 2,000 unit PO DAILY 09/19/17 [Vitamin D3] Quetiapine Fumarate [Seroquel -] 25 mg PO HS 09/19/17 Rosuvastatin [Crestor -] 10 mg PO DAILY 09/19/17 Sennosides [Senna Laxative] 17.2 mg PO HS 09/19/17 levETIRAcetam [Keppra Oral 250 mg PO BID cup 09/22/17 Solution -] Amlodipine Besylate [Norvasc -] 10 mg PO DAILY 12/03/17 Aspirin Coated [Ecotrin -] 81 mg PO DAILY 12/03/17 Losartan Potassium [Cozaar -] 50 mg PO DAILY 12/03/17 REVIEW OF SYSTEMS CONSTITUTIONAL: Absent: fever, chills, diaphoresis, generalized weakness, malaise, loss of appetite, weight change HEENT: Absent: rhinorrhea, nasal congestion, throat pain, throat swelling, difficulty swallowing, mouth swelling, ear pain, eye pain, visual changes CARDIOVASCULAR: Absent: chest pain, syncope, palpitations, irregular heart rate, lightheadedness , peripheral edema RESPIRATORY: Absent: cough, shortness of breath, dyspnea with exertion, orthopnea, wheezing, stridor, hemoptysis GASTROINTESTINAL: Present: vomiting Absent: abdominal pain, abdominal distension, diarrhea, constipation, melena, hematochezia GENITOURINARY: Absent: dysuria, frequency, urgency, hesitancy, hematuria, flank pain, genital pain MUSCULOSKELETAL: Absent: myalgia, arthralgia, joint swelling, back pain, neck pain SKIN: Absent: rash, itching, pallor HEMATOLOGIC/IMMUNOLOGIC: Absent: easy bleeding, easy bruising, lymphadenopathy, frequent infections ENDOCRINE: Absent: unexplained weight gain, unexplained weight loss, heat intolerance, cold intolerance NEUROLOGIC: Absent: headache, focal weakness or paresthesias, dizziness, unsteady gait, seizure, mental status changes, bladder or bowel incontinence PSYCHIATRIC: Absent: anxiety, depression, suicidal or homicidal ideation, hallucinations. PHYSICAL EXAMINATION Vital Signs - 24 hr 3 12/02/17 12/03/17 23:07 04:11 Temperature 98.9 F Pulse Rate 89 Pulse Rate [ 97 H Right] Respiratory 20 18 Rate Blood Pressure 117/69 Blood Pressure 150/82 [Left Arm] O2 Sat by Pulse 94 L 95 Oximetry (%) GENERAL: Awake, alert, and disoriented, in no acute distress. HEAD: Normal with no signs of trauma. EYES: Pupils equal, round and reactive to light, extraocular movements intact, sclera anicteric, conjunctiva clear. No lid lag. EARS, NOSE, THROAT: Ears normal, nares patent, oropharynx clear without exudates. Moist mucous membranes. NECK: Normal range of motion, supple without lymphadenopathy, JVD, or masses. LUNGS: Breath sounds equal, clear to auscultation bilaterally. No wheezes, and no crackles. No accessory muscle use. HEART: Regular rate and rhythm, normal S1 and S2 without murmur, rub or gallop. ABDOMEN: Soft, nontender, slightly distended, normoactive bowel sounds, no guarding, no rebound, no masses. No hepatomegaly or splenomegaly. MUSCULOSKELETAL: Normal range of motion at all joints. No bony deformities or tenderness. No CVA tenderness. UPPER EXTREMITIES: 2+ pulses, warm, well-perfused. No cyanosis. No clubbing. No peripheral edema. LOWER EXTREMITIES: 2+ pulses, warm, well-perfused. No calf tenderness. No peripheral edema. NEUROLOGICAL: Cranial nerves II-XII intact. Normal speech. Normal gait. PSYCHIATRIC: Cooperative. Good eye contact. Appropriate mood and affect. SKIN: HOT, dry, normal turgor, no rashes or lesions noted, normal capillary refill. Laboratory Results - last 24 hr 3 12/02/17 12/03/17 12/03/17 12/03/17 23:48 00:30 00:30 01:00 WBC 10.0 D RBC 4.14 Hgb 11.6 Hct 35.0 MCV 84.5 MCH 28.1 MCHC 33.3 RDW 14.3 Plt Count 160 MPV 8.9 Absolute Neuts (auto) 8.6 Neutrophils % 86.5 H D Lymphocytes % 7.8 L D Monocytes % 5.2 Eosinophils % 0.1 D Basophils % 0.4 Nucleated RBC % 0 PT with INR 11.30 INR 1.00 Sodium 139 Potassium 5.0 Chloride 107 Carbon Dioxide 26 Anion Gap 6 L BUN 22 H Creatinine 1.1 H Creat Clearance w eGFR 47.79 Random Glucose 147 H Lactic Acid 1.8 Calcium 8.6 Total Bilirubin 0.3 AST 65 H ALT 103 H Alkaline Phosphatase 209 H Creatine Kinase 70 Troponin I < 0.02 Total Protein 6.5 Albumin 3.0 L Lipase 62 L Urine Color Yellow Urine Appearance Cloudy Urine pH 5.0 Ur Specific [place] 1.016 Urine Protein Negative Urine Glucose (UA) Negative Urine Ketones Negative Urine Blood Negative Urine Nitrite Positive Urine Bilirubin Negative Urine Urobilinogen Negative Ur Leukocyte Esterase 3+ H Urine WBC (Auto) 863 Urine RBC (Auto) 8 Urine Bacteria Moderate Urine Mucus Rare ECG Normal sinus rhythm vnet rate67, QTC 467 Low voltage QRS NO acute ST/T wave changes Radiology Reports CXR portable ? increased marking R base??, official read pending ASSESSMENT/PLAN: 82yF with PMH UTI 2016, 09/2017, PNA 2016, seizures, dementia, HTN, HLD, chronic constipation, elevated LFTs presented to the ED from her adult home after vomiting. UTI - given levaquin in ED but sensitivity 09/2017 revealed resistance to same - ceftriaxone 1g now then daily - follow culture results vomiting/abd distention - will obtain xray abd to r/o obstruction/FOS cough - CXR with ? increased markings, will await final read, exam without adventitous sounds, oxygenating and no cough noted will hold on treatment for now. received levaquin in ED. If read as pneumonia, can add azithromycin to ceftriaxone. - swallow eval HTN/HLD - cont home cozaar, norvasc and crestor constipation - cont home senna, colace DVT PPX - heparin 5000u SC TID FEN - NS @ 75cc/hr - BMP in am 12/04 - puree / nectar thick as tolerated Dispo: pt currently requires further inpatient management of her emergent condition. Visit type - Emergency Visit Emergency Visit: Yes ED Registration Date: 12/02/17 Care time: The patient presented to the Emergency Department on the above date and was hospitalized for further evaluation of their emergent condition. - New Patient This patient is new to me today: Yes Date on this admission: 12/03/17 - Critical Care Critical Care patient: No Hospitalist Screening - Colonoscopy Questionnaire Colonoscopy Questionnaire: Colonoscopy Questionnaire - Patient: 50 - 75 years old and never had a screening colonoscopy: No History of colon or rectal polyps, or CA: No History of IBD, Crohn's disease or UC: No History of abdominal radiation therapy as a child: No - Relative: 1 with colon or rectal CA, or polyps at age 60 or younger: Unknown Colon or rectal CA diagnosed at age 45 or younger: Unknown Multiple relatives with colon or rectal CA: Unknown - Outcome: Screening Result: Negative Screen
[2017-12-03] MEDS ORDERED: CEFTRIAXONE 1 GM/50 ML BAG ONE (04:55)
[2017-12-03] MEDS: SODIUM CHLORIDE 1,000 ML IV SCH ×2 (05:07→14:38)
[2017-12-03] MEDS ORDERED: CEFTRIAXONE 1 GM in DEXTROSE 5%-WATER - 50 ML IVPB ONE (05:15)
[2017-12-03] MEDS ORDERED: HEPARIN NA (PORCINE) 5,000 UNITS/ML 1ML VIAL SQ SCH (06:00)
[2017-12-03] MEDS: HEPARIN NA (PORCINE) 5,000 UNITS/ML 1ML VIAL SQ SCH ×3 (06:47→22:49)
--- NOTE | 2017-12-03 09:19 | PN ---
Teaching Attending Note Name of Resident: Ubaldo Maynard ATTENDING PHYSICIAN STATEMENT I saw and evaluated the patient. I reviewed the resident's note and discussed the case with the resident. I agree with the resident's findings and plan as documented. SUBJECTIVE: Patient is nonverbal with no aye contact as well. OBJECTIVE: Vital Signs Temperature 99.4 F 12/03/17 08:20 Pulse Rate 65 12/03/17 08:20 Respiratory Rate 20 12/03/17 08:20 Blood Pressure 92/57 12/03/17 08:20 O2 Sat by Pulse Oximetry (%) 94 L 12/03/17 08:20 CBCD WBC 10.0 K/mm3 (4.0-10.0) D 12/03/17 00:30 RBC 4.14 M/mm3 (3.60-5.2) 12/03/17 00:30 Hgb 11.6 GM/dL (10.7-15.3) 12/03/17 00:30 Hct 35.0 % (32.4-45.2) 12/03/17 00:30 MCV 84.5 fl (80-96) 12/03/17 00:30 MCHC 33.3 g/dl (32.0-36.0) 12/03/17 00:30 RDW 14.3 % (11.6-15.6) 12/03/17 00:30 Plt Count 160 K/MM3 (134-434) 12/03/17 00:30 MPV 8.9 fl (7.5-11.1) 12/03/17 00:30 CMP Sodium 139 mmol/L (136-145) 12/03/17 00:30 Potassium 5.0 mmol/L (3.5-5.1) 12/03/17 00:30 Chloride 107 mmol/L (98-107) 12/03/17 00:30 Carbon Dioxide 26 mmol/L (21-32) 12/03/17 00:30 Anion Gap 6 (8-16) L 12/03/17 00:30 BUN 22 mg/dL (7-18) H 12/03/17 00:30 Creatinine 1.1 mg/dL (0.55-1.02) H 12/03/17 00:30 Creat Clearance w eGFR 47.79 (>60) 12/03/17 00:30 Random Glucose 147 mg/dL (74-106) H 12/03/17 00:30 Calcium 8.6 mg/dL (8.5-10.1) 12/03/17 00:30 Total Bilirubin 0.3 mg/dL (0.2-1.0) 12/03/17 00:30 AST 65 U/L (15-37) H 12/03/17 00:30 ALT 103 U/L (12-78) H 12/03/17 00:30 Alkaline Phosphatase 209 U/L (45-117) H 12/03/17 00:30 Total Protein 6.5 g/dl (6.4-8.2) 12/03/17 00:30 Albumin 3.0 g/dl (3.4-5.0) L 12/03/17 00:30 CARDIAC ENZYMES Creatine Kinase 70 IU/L (26-192) 12/03/17 01:00 Troponin I < 0.02 ng/ml (0.00-0.05) 12/03/17 01:00 Current Medications Generic Name Dose Route Start Last Admin Trade Name Tree PRN Reason Stop Dose Admin Amlodipine Besylate 5 mg 12/03/17 10:00 Norvasc - PO DAILY [facility] Aspirin 81 mg 12/03/17 10:00 Ecotrin - PO DAILY [facility] Cholecalciferol 2,000 unit 12/03/17 10:00 Vitamin D3 - PO DAILY [facility] Heparin Sodium (Porcine) 5,000 unit 12/03/17 06:00 12/03/17 06:47 Heparin - SQ 5,000 unit TID ANTHONY Administration Ceftriaxone Sodium 1 gm/ 50 mls @ 100 mls/hr 12/03/17 22:00 Dextrose IVPB HS [facility] Protocol Sodium Chloride 1,000 mls @ 75 mls/hr 12/03/17 05:00 12/03/17 05:07 Normal Saline - IV 75 mls/hr ASDIR ANTHONY Administration Levetiracetam 250 mg 12/03/17 10:00 Keppra Oral Solution - PO BID [facility] Losartan Potassium 50 mg 12/03/17 10:00 Cozaar - PO DAILY [facility] Quetiapine Fumarate 25 mg 12/03/17 22:00 Seroquel - PO HS ANTHONY Rosuvastatin Calcium 10 mg 12/03/17 10:00 Crestor - PO DAILY [facility] Senna 2 tab 12/03/17 22:00 Senna - PO HS [facility] Home Medications Medication Instructions Recorded Cholecalciferol (Vitamin D3) 2,000 unit PO DAILY 09/19/17 [Vitamin D3] Quetiapine Fumarate [Seroquel -] 25 mg PO HS 09/19/17 Rosuvastatin [Crestor -] 10 mg PO DAILY 09/19/17 Sennosides [Senna Laxative] 17.2 mg PO HS 09/19/17 levETIRAcetam [Keppra Oral 250 mg PO BID cup 09/22/17 Solution -] Amlodipine Besylate [Norvasc -] 5 mg PO DAILY 12/03/17 Aspirin Coated [Ecotrin -] 81 mg PO DAILY 12/03/17 Losartan Potassium [Cozaar -] 50 mg PO DAILY 12/03/17 PE: per resident's note ASSESSMENT AND PLAN: Patient is a 82yo Female with PMHx of UTI 2015, 09/2017, PNA 2016, seizures, dementia, HTN, HLD, chronic constipation, elevated LFTs presented to the ED from her adult home after vomiting. #Acute UTI started on Ceftriaxione 1gm daily; will follow Urine Cx # Acute vomiting/abd distention , no further vomiting; Abdominal Xray ordered was negative for obstruction # cough: CXR is negative for any pathology. received levaquin in ED. Swallowing evaluation ordered ; Tayler Hernandez for consult - # HTN/HLD continue home cozaar, norvasc and crestor # constipation cont home senna, colace DVT PPX: heparin 5000u SC TID
[2017-12-03] MEDS ORDERED: amLODIPine BESYLATE 10 MG TABLET (FP) PO SCH (10:00)
[2017-12-03] MEDS: ROSUVASTATIN CA 10 MG TABLET (FP) PO SCH ×2 (10:52→11:20)
[2017-12-03] MEDS: CHOLECALCIFEROL (VITAMIN D3) 1,000 UNIT TABLET (FP) PO SCH ×2 (10:52→11:21)
[2017-12-03] MEDS: ASPIRIN COATED 81 MG TABLET.EC PO SCH ×2 (10:52→11:20)
--- NOTE | 2017-12-03 11:52 | EKG ---
Test Reason : Blood Pressure : / mmHG Vent. Rate : 067 BPM Atrial Rate : 067 BPM P-R Int : 180 ms QRS Dur : 090 ms QT Int : 442 ms P-R-T Axes : 039 000 031 degrees QTc Int : 467 ms NORMAL SINUS RHYTHM LOW VOLTAGE QRS RSR' OR QR PATTERN IN V1 SUGGESTS RIGHT VENTRICULAR CONDUCTION DELAY NONSPECIFIC T WAVE ABNORMALITY ABNORMAL ECG WHEN COMPARED WITH ECG OF 19-SEP-2017 07:15, ST NO LONGER DEPRESSED IN INFERIOR LEADS NONSPECIFIC T WAVE ABNORMALITY, WORSE IN LATERAL LEADS Confirmed by LAKESHIA MA, QUINCY ([id number]) on 12/03/2017 11:52:13 AM Referred By: Confirmed By:QUINCY ASHER MD
[2017-12-03] MEDS: LOSARTAN POTASSIUM 50 MG TABLET (FP) PO SCH (14:32)
[2017-12-03] MEDS: amLODIPine BESYLATE 5 MG TABLET (FP) PO SCH (14:32)
[2017-12-03] MEDS: levETIRAcetam 500 MG/5 ML ORAL SOLUTION (UNIT-DOSE CUPS) PO SCH ×2 (14:33→22:49)
--- NOTE | 2017-12-03 14:56 | CONSULT ---
Admitting History and Physical - Primary Care Physician PCP: Zeny Polk - Admission History of Present Illness: This is an 82 year old female with a significant past medical history of UTI, PNA, dementia, HTN, HLD who presented to the ED from her adult home with vomiting after eating her puree diet and cough. Staff were concerned for aspiration pneumonia. Pt is nonverbal and history is obtained from the NH chart , ED chart and previous visits. Last seen 09/2017-Impression: Euphoric. Laughing aloud. Good vocal quality. Non verbal. Readily accepts puree and nectar thick lioquid without difficulty. With trial of thin liquid, pt with tongue thrust after single sip, seemingly protecting airway, with delayed but brisk swallow.Suspect spillage over base of tongue with heber-pharyngeal dyscoordination. Tolerating puree/nectar without difficulty. Continue to crush meds. Consider free water protocol, b/n meals in NH. Pt on pureed diet/nectar thick liquid. Pt feeds herself with supervision. History Source: Medical Record, Transfer Record Limitations to Obtaining History: Dementia, Poor Historian - Past Medical History BULLET MAKER: Yes: Alzheimer's Cardiovascular: Yes: HTN, Hyperlipdemia Gastrointestinal: Yes: Other (small bowel obstruction repair) Hepatobiliary: Yes: Other (chronic elevation of transaminases; h/o small bowel obstruction s/p surgical repair) Heme/Onc: Yes: Anemia - Smoking History Smoking history: Unknown if ever smoked Have you smoked in the past 12 months: No - Alcohol/Substance Use Hx Alcohol Use: No History of Substance Use: reports: None History - Admission Reason For Visit: DEMENTIA/PNEUMONIA/PANCREATIC ABN - General Mental Status: Awake and Alert, Confused (Euphoric. Audible laughing) Head/Neck Control: Fair Speech Evaluation - Communication Primary Language: KOSOVAN Communication: Yes: Non-Communicable - Speech Production Able to Make Needs Known: Yes: Severely Impaired - Swallow Evaluation/Bedside Assessment Current Nutritional Intake: NPO Facial Symmetry at Rest: Symmetrical Smile: Normal Lingual Movement: Symmetric Labial Seal: WFL Oral Prep Time: WFL A-P Transit: WFL Pocketing: None Timing of Swallow: Delayed Coughing/Throat Clear: No Change in Voice: No Recommendations - Speech Evaluation, Impression/Plan Impression: Euphoric/laughing. Non communicative but maintains eye contact. Readily accepted puree/thick liquid without overt signs of difficulty. Swallow is delayed in onset but brisk. Risk of aspirating if she starts laughing while food/liquid in her oropharynx before swallow reflex is triggered. - Dysphagia Impressions/Plan Dysphagia Impressions: Mild Impairment, Risk of Aspiration *Silent aspiration: cannot be R/O at bedside Dysphagia Treatment Plan: Small Bites, Chin Tuck/Down, Trial Feedings, Safe Rate , 1/2 tsp. at a time, Elevate HOB during feed, Other (observe for swallow reflex before next bite) - Recommendations Diet Consistency: Dysphagia Pureed Medication Administration: Crushed with applesauce Liquids: Cass Thick Supplement: Magic Cup, Ensure Pudding, Other (Ensure compact.)
--- NOTE | 2017-12-03 20:03 | PN ---
Physical Exam: SUBJECTIVE: HPI limited due to pt condition. Per medical record, pt came in with fevers, diaphoresis, and chills from [facility]. Pt at baseline is nonverbal, however seems to walk with assistance. Pt found to have UTI with fevers and started on ABX and IVF. OBJECTIVE: Vital Signs Period Temp Pulse Resp BP Sys/Freeman Pulse Ox Last 24 Hr 98.4 F-101.6 F 57-97 16-20 92-150/55-82 94-96 GENERAL: NAD, awake, alert, minimally responsive to stimuli, but when aroused will track across the room. Nonverbal HEENT: HERRERA, NC/AT, sclera anicteric, dry mucosa, withdrawn bottom lips. No plaques or erythema seen in posterior oropharynx NECK: No JVD LUNGS: CTA bilaterally with poor inspiratory effort, no wheezes, no crackles, no accessory muscle use. HEART: RRR, S1, S2 without murmur ABDOMEN: Soft, nondistended, no facial grimmacing with palpation, normoactive bowel sounds, no guarding, no hepatomegaly EXTREMITIES: 2+ DP pulses, well-perfused, no edema. SKIN: Hot, dry, normal turgor, no rashes or lesions noted Laboratory Results - last 24 hr 12/02/17 12/03/17 12/03/17 23:48 00:30 00:30 WBC 10.0 D RBC 4.14 Hgb 11.6 Hct 35.0 MCV 84.5 MCH 28.1 MCHC 33.3 RDW 14.3 Plt Count 160 MPV 8.9 Absolute Neuts (auto) 8.6 Neutrophils % 86.5 H D Lymphocytes % 7.8 L D Monocytes % 5.2 Eosinophils % 0.1 D Basophils % 0.4 Nucleated RBC % 0 PT with INR INR Sodium 139 Potassium 5.0 Chloride 107 Carbon Dioxide 26 Anion Gap 6 L BUN 22 H Creatinine 1.1 H Creat Clearance w eGFR 47.79 Random Glucose 147 H Lactic Acid Calcium 8.6 Total Bilirubin 0.3 AST 65 H ALT 103 H Alkaline Phosphatase 209 H Creatine Kinase Troponin I Total Protein 6.5 Albumin 3.0 L Lipase Urine Color Yellow Urine Appearance Cloudy Urine pH 5.0 Ur Specific [place] 1.016 Urine Protein Negative Urine Glucose (UA) Negative Urine Ketones Negative Urine Blood Negative Urine Nitrite Positive Urine Bilirubin Negative Urine Urobilinogen Negative Ur Leukocyte Esterase 3+ H Urine WBC (Auto) 863 Urine RBC (Auto) 8 Urine Bacteria Moderate Urine Mucus Rare 12/03/17 12/03/17 12/03/17 00:30 00:30 01:00 WBC RBC Hgb Hct MCV MCH MCHC RDW Plt Count MPV Absolute Neuts (auto) Neutrophils % Lymphocytes % Monocytes % Eosinophils % Basophils % Nucleated RBC % PT with INR 11.30 INR 1.00 Sodium Potassium Chloride Carbon Dioxide Anion Gap BUN Creatinine Creat Clearance w eGFR Random Glucose Lactic Acid 1.8 Calcium Total Bilirubin AST ALT Alkaline Phosphatase Creatine Kinase 70 Troponin I < 0.02 Total Protein Albumin Lipase 62 L Urine Color Urine Appearance Urine pH Ur Specific [place] Urine Protein Urine Glucose (UA) Urine Ketones Urine Blood Urine Nitrite Urine Bilirubin Urine Urobilinogen Ur Leukocyte Esterase Urine WBC (Auto) Urine RBC (Auto) Urine Bacteria Urine Mucus Active Medications Generic Name Dose Route Start Last Admin Trade Name Freq PRN Reason Stop Dose Admin Amlodipine Besylate 5 mg 12/03/17 10:00 12/03/17 14:32 Norvasc - PO Not Given DAILY [facility] Aspirin 81 mg 12/03/17 10:00 12/03/17 11:20 Ecotrin - PO 81 mg DAILY ANTHONY Administration Cholecalciferol 2,000 unit 12/03/17 10:00 12/03/17 11:21 Vitamin D3 - PO 2,000 unit DAILY ANTHONY Administration Heparin Sodium (Porcine) 5,000 unit 12/03/17 06:00 12/03/17 14:40 Heparin - SQ 5,000 unit TID ANTHONY Administration Ceftriaxone Sodium 1 gm/ 50 mls @ 100 mls/hr 12/03/17 22:00 Dextrose IVPB [facility] Protocol Sodium Chloride 1,000 mls @ 75 mls/hr 12/03/17 05:00 12/03/17 14:38 Normal Saline - IV 75 mls/hr ASDIR ANTHONY Administration Levetiracetam 250 mg 12/03/17 10:00 12/03/17 14:33 Keppra Oral Solution - PO Not Given BID [facility] Losartan Potassium 50 mg 12/03/17 10:00 12/03/17 14:32 Cozaar - PO Not Given DAILY [facility] Quetiapine Fumarate 25 mg 12/03/17 22:00 Seroquel - PO [facility] Rosuvastatin Calcium 10 mg 12/03/17 10:00 12/03/17 11:20 Crestor - PO 10 mg DAILY ANTHONY Administration Senna 2 tab 12/03/17 22:00 Senna - PO HS ANTHONY ASSESSMENT/PLAN: 1) UTI --Fevers, chills, WBC noted --Continue Rocephin 1gm qDaily --UCx is pending; will f/u --IVF --Tylenol for fevers 2) HTN --continue home Cozaar 50mg qDaily --continue Norvasc 5mg qDaily 3) HLD --Continue Crestor 10mg qdaily FEN: Fluids: increase to NS@100cc/hr (previous echo reviewed) Electrolyte abnormalities: none currently Nutrition: S&S eval pending PPX: DVT - Heparin SQ Dispo: Continue M/S monitoring Case discussed with Dr. Felicitas Maynard, DO - IM PGY-1 Visit type - Emergency Visit Emergency Visit: No - New Patient This patient is new to me today: Yes Date on this admission: 12/03/17 - Critical Care Critical Care patient: No
[2017-12-03] MEDS ORDERED: ACETAMINOPHEN 1000 MG/100 ML VIAL (NON FORMULARY) IVPB PRN (20:07)
[2017-12-03] MEDS ORDERED: SODIUM CHLORIDE 1,000 ML IV SCH (20:20)
[2017-12-03] MEDS ORDERED: PT OWN MED DRAWER 7, Y5N ONE (21:15)
[2017-12-03] MEDS ORDERED: cefTRIAXone SODIUM 1 GM VIAL ONE (21:15)
[2017-12-03] MEDS ORDERED: DEXTROSE 5%-WATER - 50 ML IVPB ONE (21:16)
[2017-12-03] MEDS: CEFTRIAXONE 1 GM in DEXTROSE 5%-WATER - 50 ML IVPB SCH (22:50)
[2017-12-03] MEDS: SENNOSIDES 8.6MG TABLET (FP) PO SCH (22:50)
[2017-12-03] MEDS: QUEtiapine FUMARATE 25 MG TABLET (FP) PO SCH (22:51)
[2017-12-04] MEDS: HEPARIN NA (PORCINE) 5,000 UNITS/ML 1ML VIAL SQ SCH ×3 (06:07→22:12)
[2017-12-04 07:38] LABS: BASO % 0.4 % (0-2.0); EOS % 2.5 % (0-4.5); HEMATOCRIT 30.8 % (32.4-45.2); HEMOGLOBIN 10.2 GM/dL (10.7-15.3); LYMPH % 23.4 % (8-40); MCH 28.3 pg (25.7-33.7); MCHC 33.1 g/dl (32.0-36.0); MEAN CELL VOLUME 85.4 fl (80-96); MEAN PLT VOLUME 9.6 fl (7.5-11.1); MONO % 9.8 % (3.8-10.2); NEUT % 63.9 % (42.8-82.8); PLATELET COUNT 116 K/MM3 (134-434); RDW 14.3 % (11.6-15.6)
[2017-12-04 08:31] LABS: ALBUMIN 2.5 g/dl (3.4-5.0); ANION GAP 6 (8-16); BLOOD UREA NITROGEN 16 mg/dL (7-18); CHLORIDE 111 mmol/L (98-107); CO2 27 mmol/L (21-32); GLUCOSE,RANDOM 71 mg/dL (74-106); MAGNESIUM 2.2 mg/dL (1.8-2.4); POTASSIUM 4.5 mmol/L (3.5-5.1); SODIUM 144 mmol/L (136-145)
[2017-12-04 08:36] LABS: ALK PHOS 202 U/L (45-117); BILIRUBIN,TOTAL 0.4 mg/dL (0.2-1.0); PHOSPHOROUS 2.7 mg/dL (2.5-4.9); SGOT/AST 89 U/L (15-37); SGPT/ALT 130 U/L (12-78); TOT PROT 5.6 g/dl (6.4-8.2)
[2017-12-04] MEDS ORDERED: PT OWN MED DRAWER 7, Y5N ONE ×2 (10:21→21:40)
[2017-12-04] MEDS: levETIRAcetam 500 MG/5 ML ORAL SOLUTION (UNIT-DOSE CUPS) PO SCH ×2 (10:26→22:12)
[2017-12-04] MEDS: CHOLECALCIFEROL (VITAMIN D3) 1,000 UNIT TABLET (FP) PO SCH (10:26)
[2017-12-04] MEDS: ASPIRIN COATED 81 MG TABLET.EC PO SCH (10:26)
[2017-12-04] MEDS: LOSARTAN POTASSIUM 50 MG TABLET (FP) PO SCH (10:26)
[2017-12-04] MEDS: amLODIPine BESYLATE 5 MG TABLET (FP) PO SCH (10:26)
[2017-12-04] MEDS: ROSUVASTATIN CA 10 MG TABLET (FP) PO SCH ×2 (10:30→22:13)
--- NOTE | 2017-12-04 19:33 | PN ---
Teaching Attending Note Name of Resident: Ubaldo Maynard ATTENDING PHYSICIAN STATEMENT I saw and evaluated the patient. I reviewed the resident's note and discussed the case with the resident. I agree with the resident's findings and plan as documented. SUBJECTIVE: Patient is better today but continues to be nonverbal. OBJECTIVE: Vital Signs Temperature 99.8 F H 12/04/17 18:00 Pulse Rate 62 12/04/17 18:00 Respiratory Rate 18 12/04/17 18:00 Blood Pressure 126/60 12/04/17 18:00 O2 Sat by Pulse Oximetry (%) 93 L 12/04/17 09:00 GENERAL: NAD, awake, alert, minimally responsive to stimuli, but when aroused will track across the room. Nonverbal HEENT: HERRERA, NC/AT, sclera anicteric, dry mucosa, withdrawn bottom lips. No plaques or erythema seen in posterior oropharynx NECK: No JVD LUNGS: CTA bilaterally with poor inspiratory effort, no wheezes, no crackles, no accessory muscle use. HEART: RRR, S1, S2 without murmur ABDOMEN: Soft, nondistended, no facial grimmacing with palpation, normoactive bowel sounds, no guarding, no hepatomegaly EXTREMITIES: 2+ DP pulses, well-perfused, no edema. SKIN: Hot, dry, normal turgor, no rashes or lesions noted CBCD WBC 7.0 K/mm3 (4.0-10.0) 12/04/17 06:16 RBC 3.60 M/mm3 (3.60-5.2) 12/04/17 06:16 Hgb 10.2 GM/dL (10.7-15.3) L D 12/04/17 06:16 Hct 30.8 % (32.4-45.2) L 12/04/17 06:16 MCV 85.4 fl (80-96) 12/04/17 06:16 MCHC 33.1 g/dl (32.0-36.0) 12/04/17 06:16 RDW 14.3 % (11.6-15.6) 12/04/17 06:16 Plt Count 116 K/MM3 (134-434) L D 12/04/17 06:16 MPV 9.6 fl (7.5-11.1) 12/04/17 06:16 CMP Sodium 144 mmol/L (136-145) 12/04/17 06:16 Potassium 4.5 mmol/L (3.5-5.1) 12/04/17 06:16 Chloride 111 mmol/L (98-107) H 12/04/17 06:16 Carbon Dioxide 27 mmol/L (21-32) 12/04/17 06:16 Anion Gap 6 (8-16) L 12/04/17 06:16 BUN 16 mg/dL (7-18) 12/04/17 06:16 Creatinine 1.0 mg/dL (0.55-1.02) 12/04/17 06:16 Creat Clearance w eGFR 53.35 (>60) 12/04/17 06:16 Random Glucose 71 mg/dL (74-106) L 12/04/17 06:16 Calcium 8.0 mg/dL (8.5-10.1) L 12/04/17 06:16 Total Bilirubin 0.4 mg/dL (0.2-1.0) D 12/04/17 06:16 AST 89 U/L (15-37) H 12/04/17 06:16 ALT 130 U/L (12-78) H 12/04/17 06:16 Alkaline Phosphatase 202 U/L (45-117) H 12/04/17 06:16 Total Protein 5.6 g/dl (6.4-8.2) L 12/04/17 06:16 Albumin 2.5 g/dl (3.4-5.0) L 12/04/17 06:16 CARDIAC ENZYMES Creatine Kinase 70 IU/L (26-192) 12/03/17 01:00 Troponin I < 0.02 ng/ml (0.00-0.05) 12/03/17 01:00 Current Medications Generic Name Dose Route Start Last Admin Trade Name Freq PRN Reason Stop Dose Admin Acetaminophen 1,000 mg 12/03/17 20:07 Ofirmev Injection - IVPB Q6H PRN FEVER Amlodipine Besylate 5 mg 12/03/17 10:00 12/04/17 10:26 Norvasc - PO 5 mg DAILY ANTHONY Administration Aspirin 81 mg 12/03/17 10:00 12/04/17 10:26 Ecotrin - PO 81 mg DAILY ANTHONY Administration Cholecalciferol 2,000 unit 12/03/17 10:00 12/04/17 10:26 Vitamin D3 - PO 2,000 unit DAILY ANTHONY Administration Heparin Sodium (Porcine) 5,000 unit 12/03/17 06:00 12/04/17 14:09 Heparin - SQ 5,000 unit TID ANTHONY Administration Ceftriaxone Sodium 1 gm/ 50 mls @ 100 mls/hr 12/03/17 22:00 12/03/17 22:50 Dextrose IVPB 100 mls/hr HS ANTHONY Administration Protocol Levetiracetam 250 mg 12/03/17 10:00 12/04/17 10:26 Keppra Oral Solution - PO 250 mg BID ANTHONY Administration Losartan Potassium 50 mg 12/03/17 10:00 12/04/17 10:26 Cozaar - PO 50 mg DAILY ANTHONY Administration Quetiapine Fumarate 25 mg 12/03/17 22:00 12/03/17 22:51 Seroquel - PO 25 mg HS ANTHONY Administration Rosuvastatin Calcium 10 mg 12/04/17 22:00 Crestor - PO HS ANTHONY Senna 2 tab 12/03/17 22:00 12/03/17 22:50 Senna - PO 2 tab HS ANTHONY Administration Home Medications Medication Instructions Recorded Cholecalciferol (Vitamin D3) 2,000 unit PO DAILY 09/19/17 [Vitamin D3] Quetiapine Fumarate [Seroquel -] 25 mg PO HS 09/19/17 Rosuvastatin [Crestor -] 10 mg PO DAILY 09/19/17 Sennosides [Senna Laxative] 17.2 mg PO HS 09/19/17 levETIRAcetam [Keppra Oral 250 mg PO BID cup 09/22/17 Solution -] Amlodipine Besylate [Norvasc -] 5 mg PO DAILY 12/03/17 Aspirin Coated [Ecotrin -] 81 mg PO DAILY 12/03/17 Losartan Potassium [Cozaar -] 50 mg PO DAILY 12/03/17 Microbiology ASSESSMENT AND PLAN: Patient is a 82yo Female with PMHx of UTI 2015, 09/2017, PNA 2016, seizures, dementia, HTN, HLD, chronic constipation, elevated LFTs presented to the ED from her adult home after vomiting. #Acute UTI continue Ceftriaxione 1gm daily; will follow Urine Cx # Acute vomiting/abd distention , no further vomiting; Abdominal Xray ordered was negative for obstruction # cough: CXR is negative for any pathology. received levaquin in ED. Swallowing evaluation ordered ; Tayler Hernandez for consult - # HTN/HLD continue home cozaar, norvasc and crestor # constipation cont home senna, colace DVT PPX: heparin 5000u SC TID
[2017-12-04] MEDS ORDERED: DEXTROSE 5%-WATER - 50 ML IVPB ONE (21:38)
[2017-12-04] MEDS ORDERED: cefTRIAXone SODIUM 1 GM VIAL ONE (21:38)
[2017-12-04] MEDS: CEFTRIAXONE 1 GM in DEXTROSE 5%-WATER - 50 ML IVPB SCH (22:12)
[2017-12-04] MEDS: SENNOSIDES 8.6MG TABLET (FP) PO SCH (22:13)
[2017-12-04] MEDS: QUEtiapine FUMARATE 25 MG TABLET (FP) PO SCH (22:13)
[2017-12-05] MEDS: HEPARIN NA (PORCINE) 5,000 UNITS/ML 1ML VIAL SQ SCH ×3 (06:22→21:45)
--- NOTE | 2017-12-05 10:41 | PN ---
Physical Exam: SUBJECTIVE: Patient seen and examined Patient is feeling better, eyes open, more responsive. OBJECTIVE: Vital Signs Temperature 98.3 F 12/05/17 06:00 Pulse Rate 56 L 12/05/17 06:00 Respiratory Rate 20 12/05/17 06:00 Blood Pressure 120/60 12/05/17 06:00 O2 Sat by Pulse Oximetry (%) 96 12/04/17 21:00 GENERAL: NAD, awake, alert, more responsive to stimuli, continues to be Nonverbal HEENT: HERRERA, NC/AT, sclera anicteric, dry mucosa, withdrawn bottom lips. NECK: No JVD LUNGS: CTA bilaterally with poor inspiratory effort, no wheezes, no crackles, no accessory muscle use. HEART: RRR, S1, S2 without murmur ABDOMEN: Soft, nondistended, no facial grimmacing with palpation, normoactive bowel sounds, no guarding, no hepatomegaly EXTREMITIES: 2+ DP pulses, well-perfused, no edema. SKIN: Hot, dry, normal turgor, no rashes or lesions noted CBCD WBC 7.0 K/mm3 (4.0-10.0) 12/04/17 06:16 RBC 3.60 M/mm3 (3.60-5.2) 12/04/17 06:16 Hgb 10.2 GM/dL (10.7-15.3) L D 12/04/17 06:16 Hct 30.8 % (32.4-45.2) L 12/04/17 06:16 MCV 85.4 fl (80-96) 12/04/17 06:16 MCHC 33.1 g/dl (32.0-36.0) 12/04/17 06:16 RDW 14.3 % (11.6-15.6) 12/04/17 06:16 Plt Count 116 K/MM3 (134-434) L D 12/04/17 06:16 MPV 9.6 fl (7.5-11.1) 12/04/17 06:16 CMP Sodium 144 mmol/L (136-145) 12/04/17 06:16 Potassium 4.5 mmol/L (3.5-5.1) 12/04/17 06:16 Chloride 111 mmol/L (98-107) H 06/22/18 06:16 Carbon Dioxide 27 mmol/L (21-32) 12/04/17 06:16 Anion Gap 6 (8-16) L 12/04/17 06:16 BUN 16 mg/dL (7-18) 12/04/17 06:16 Creatinine 1.0 mg/dL (0.55-1.02) 12/04/17 06:16 Creat Clearance w eGFR 53.35 (>60) 12/04/17 06:16 Random Glucose 71 mg/dL (74-106) L 12/04/17 06:16 Calcium 8.0 mg/dL (8.5-10.1) L 12/04/17 06:16 Total Bilirubin 0.4 mg/dL (0.2-1.0) D 12/04/17 06:16 AST 89 U/L (15-37) H 12/04/17 06:16 ALT 130 U/L (12-78) H 12/04/17 06:16 Alkaline Phosphatase 202 U/L (45-117) H 12/04/17 06:16 Total Protein 5.6 g/dl (6.4-8.2) L 12/04/17 06:16 Albumin 2.5 g/dl (3.4-5.0) L 12/04/17 06:16 CARDIAC ENZYMES Creatine Kinase 70 IU/L (26-192) 12/03/17 01:00 Troponin I < 0.02 ng/ml (0.00-0.05) 12/03/17 01:00 Current Medications Generic Name Dose Route Start Last Admin Trade Name Freq PRN Reason Stop Dose Admin Acetaminophen 1,000 mg 12/03/17 20:07 Ofirmev Injection - IVPB Q6H PRN FEVER Amlodipine Besylate 5 mg 12/03/17 10:00 12/04/17 10:26 Norvasc - PO 5 mg DAILY ANTHONY Administration Aspirin 81 mg 12/03/17 10:00 12/04/17 10:26 Ecotrin - PO 81 mg DAILY ANTHONY Administration Cholecalciferol 2,000 unit 12/03/17 10:00 12/04/17 10:26 Vitamin D3 - PO 2,000 unit DAILY ANTHONY Administration Heparin Sodium (Porcine) 5,000 unit 12/03/17 06:00 12/05/17 06:22 Heparin - SQ 5,000 unit TID ANTHONY Administration Ceftriaxone Sodium 1 gm/ 50 mls @ 100 mls/hr 12/03/17 22:00 12/04/17 22:12 Dextrose IVPB 100 mls/hr HS ANTOHNY Administration Protocol Levetiracetam 250 mg 12/03/17 10:00 12/04/17 22:12 Keppra Oral Solution - PO 250 mg BID ANTHONY Administration Losartan Potassium 50 mg 12/03/17 10:00 12/04/17 10:26 Cozaar - PO 50 mg DAILY ANTHONY Administration Quetiapine Fumarate 25 mg 12/03/17 22:00 12/04/17 22:13 Seroquel - PO 25 mg HS ANTHONY Administration Rosuvastatin Calcium 10 mg 12/04/17 22:00 12/04/17 22:13 Crestor - PO 10 mg HS ANTHONY Administration Senna 2 tab 12/03/17 22:00 12/04/17 22:13 Senna - PO 2 tab HS ANTHONY Administration Home Medications Medication Instructions Recorded Cholecalciferol (Vitamin D3) 2,000 unit PO DAILY 09/19/17 [Vitamin D3] Quetiapine Fumarate [Seroquel -] 25 mg PO HS 09/19/17 Rosuvastatin [Crestor -] 10 mg PO DAILY 09/19/17 Sennosides [Senna Laxative] 17.2 mg PO HS 09/19/17 levETIRAcetam [Keppra Oral 250 mg PO BID cup 09/22/17 Solution -] Amlodipine Besylate [Norvasc -] 5 mg PO DAILY 12/03/17 Aspirin Coated [Ecotrin -] 81 mg PO DAILY 12/03/17 Losartan Potassium [Cozaar -] 50 mg PO DAILY 12/03/17 Microbiology 12/02/17 23:48 Urine - Urine - Catheterized Urine Culture - Final Escherichia Coli 12/03/17 01:34 Blood - Peripheral Venous Blood Culture - Preliminary NO GROWTH OBTAINED AFTER 72 HOURS, INCUBATION TO CONTINUE FOR 2 DAYS. 12/03/17 01:34 Blood - Peripheral Venous Blood Culture - Preliminary NO GROWTH OBTAINED AFTER 72 HOURS, INCUBATION TO CONTINUE FOR 2 DAYS. ASSESSMENT AND PLAN: Patient is a 82yo Female with PMHx of UTI 2015, 09/2017, PNA 2016, seizures, dementia, HTN, HLD, chronic constipation, elevated LFTs presented to the ED from her adult home after vomiting. #Acute UTI due to E.Coli continue Ceftriaxione 1gm daily; pending sensitivity # s/p acute change of mental status due ti UTI , improving , patient is nonverbal but when spoken her language became so happy with a smile on her face. # Acute vomiting/abd distention , no further vomiting; Abdominal Xray ordered was negative for obstruction # cough: CXR is negative for any pathology. received levaquin in ED. Swallowing evaluation ordered ; Tayler Hernandez for consult - # HTN/HLD continue home cozaar, norvasc and crestor # constipation cont home senna, colace DVT PPX: heparin 5000u SC TID Visit type - Emergency Visit Emergency Visit: Yes ED Registration Date: 12/03/17 Care time: The patient presented to the Emergency Department on the above date and was hospitalized for further evaluation of their emergent condition. - New Patient This patient is new to me today: No - Critical Care Critical Care patient: No - Discharge Referral Referred to [facility] No
[2017-12-05] MEDS: amLODIPine BESYLATE 5 MG TABLET (FP) PO SCH (10:53)
[2017-12-05] MEDS: LOSARTAN POTASSIUM 50 MG TABLET (FP) PO SCH (10:53)
[2017-12-05] MEDS: CHOLECALCIFEROL (VITAMIN D3) 1,000 UNIT TABLET (FP) PO SCH (10:53)
[2017-12-05] MEDS: ASPIRIN COATED 81 MG TABLET.EC PO SCH (10:53)
[2017-12-05] MEDS: levETIRAcetam 500 MG/5 ML ORAL SOLUTION (UNIT-DOSE CUPS) PO SCH ×2 (10:54→21:56)
[2017-12-05 15:40] VITALS: BMI 30.2
[2017-12-05] MEDS ORDERED: DEXTROSE 5%-WATER - 50 ML IVPB ONE (21:14)
[2017-12-05] MEDS ORDERED: cefTRIAXone SODIUM 1 GM VIAL ONE (21:14)
[2017-12-05] MEDS: SENNOSIDES 8.6MG TABLET (FP) PO SCH (21:44)
[2017-12-05] MEDS: ROSUVASTATIN CA 10 MG TABLET (FP) PO SCH (21:45)
[2017-12-05] MEDS: CEFTRIAXONE 1 GM in DEXTROSE 5%-WATER - 50 ML IVPB SCH (21:45)
[2017-12-05] MEDS: QUEtiapine FUMARATE 25 MG TABLET (FP) PO SCH (21:45)
[2017-12-05] MEDS ORDERED: PT OWN MED DRAWER 7, Y5N ONE (21:51)
[2017-12-06] MEDS: HEPARIN NA (PORCINE) 5,000 UNITS/ML 1ML VIAL SQ SCH ×3 (05:49→22:21)
[2017-12-06] MEDS: ASPIRIN COATED 81 MG TABLET.EC PO SCH (10:11)
[2017-12-06] MEDS: amLODIPine BESYLATE 5 MG TABLET (FP) PO SCH (10:11)
[2017-12-06] MEDS: CHOLECALCIFEROL (VITAMIN D3) 1,000 UNIT TABLET (FP) PO SCH (10:11)
[2017-12-06] MEDS: levETIRAcetam 500 MG/5 ML ORAL SOLUTION (UNIT-DOSE CUPS) PO SCH ×2 (10:11→22:21)
[2017-12-06] MEDS: LOSARTAN POTASSIUM 50 MG TABLET (FP) PO SCH (10:11)
--- NOTE | 2017-12-06 15:07 | PN ---
Progress Note (short form) - Note Progress Note: Looks comfortable with no acute distress. Vital Signs Temperature 97.9 F 12/06/17 10:00 Pulse Rate 54 L 12/06/17 10:00 Respiratory Rate 20 12/06/17 10:00 Blood Pressure 113/64 12/06/17 10:00 O2 Sat by Pulse Oximetry (%) 96 12/05/17 21:00 GENERAL: NAD, awake, alert, eyes open and smiles when spoken in her langauage . Nonverbal HEENT: HERRERA, NC/AT, sclera anicteric, dry mucosa, withdrawn bottom lips. NECK: No JVD LUNGS: CTA bilaterally with poor inspiratory effort, no wheezes, no crackles, no accessory muscle use. HEART: RRR, S1, S2 without murmur ABDOMEN: Soft, nondistended, no facial grimmacing with palpation, normoactive bowel sounds, no guarding, no hepatomegaly EXTREMITIES: 2+ DP pulses, well-perfused, no edema. SKIN: Hot, dry, normal turgor, no rashes or lesions noted CBCD WBC 7.0 K/mm3 (4.0-10.0) 12/04/17 06:16 RBC 3.60 M/mm3 (3.60-5.2) 12/04/17 06:16 Hgb 10.2 GM/dL (10.7-15.3) L D 12/04/17 06:16 Hct 30.8 % (32.4-45.2) L 12/04/17 06:16 MCV 85.4 fl (80-96) 12/04/17 06:16 MCHC 33.1 g/dl (32.0-36.0) 12/04/17 06:16 RDW 14.3 % (11.6-15.6) 12/04/17 06:16 Plt Count 116 K/MM3 (134-434) L D 12/04/17 06:16 MPV 9.6 fl (7.5-11.1) 12/04/17 06:16 CMP Sodium 144 mmol/L (136-145) 12/04/17 06:16 Potassium 4.5 mmol/L (3.5-5.1) 12/04/17 06:16 Chloride 111 mmol/L (98-107) H 12/04/17 06:16 Carbon Dioxide 27 mmol/L (21-32) 12/04/17 06:16 Anion Gap 6 (8-16) L 12/04/17 06:16 BUN 16 mg/dL (7-18) 12/04/17 06:16 Creatinine 1.0 mg/dL (0.55-1.02) 12/04/17 06:16 Creat Clearance w eGFR 53.35 (>60) 12/04/17 06:16 Random Glucose 71 mg/dL (74-106) L 12/04/17 06:16 Calcium 8.0 mg/dL (8.5-10.1) L 12/04/17 06:16 Total Bilirubin 0.4 mg/dL (0.2-1.0) D 12/04/17 06:16 AST 89 U/L (15-37) H 12/04/17 06:16 ALT 130 U/L (12-78) H 12/04/17 06:16 Alkaline Phosphatase 202 U/L (45-117) H 12/04/17 06:16 Total Protein 5.6 g/dl (6.4-8.2) L 12/04/17 06:16 Albumin 2.5 g/dl (3.4-5.0) L 12/04/17 06:16 CARDIAC ENZYMES Creatine Kinase 70 IU/L (26-192) 12/03/17 01:00 Troponin I < 0.02 ng/ml (0.00-0.05) 12/03/17 01:00 Current Medications Generic Name Dose Route Start Last Admin Trade Name Freq PRN Reason Stop Dose Admin Acetaminophen 1,000 mg 12/03/17 20:07 Ofirmev Injection - IVPB Q6H PRN FEVER Amlodipine Besylate 5 mg 12/03/17 10:00 12/06/17 10:11 Norvasc - PO 5 mg DAILY ANTHONY Administration Aspirin 81 mg 12/03/17 10:00 12/06/17 10:11 Ecotrin - PO 81 mg DAILY ANTHONY Administration Cholecalciferol 2,000 unit 12/03/17 10:00 12/06/17 10:11 Vitamin D3 - PO 2,000 unit DAILY ANTHONY Administration Heparin Sodium (Porcine) 5,000 unit 12/03/17 06:00 12/06/17 13:55 Heparin - SQ 5,000 unit TID ANTHONY Administration Ceftriaxone Sodium 1 gm/ 50 mls @ 100 mls/hr 12/03/17 22:00 12/05/17 21:45 Dextrose IVPB 100 mls/hr HS ANTHONY Administration Protocol Levetiracetam 250 mg 12/03/17 10:00 12/06/17 10:11 Keppra Oral Solution - PO 250 mg BID ANTHONY Administration Losartan Potassium 50 mg 12/03/17 10:00 12/06/17 10:11 Cozaar - PO 50 mg DAILY ANTHONY Administration Quetiapine Fumarate 25 mg 12/03/17 22:00 12/05/17 21:45 Seroquel - PO 25 mg HS ANTHONY Administration Rosuvastatin Calcium 10 mg 12/04/17 22:00 12/05/17 21:45 Crestor - PO 10 mg HS ANTHONY Administration Senna 2 tab 12/03/17 22:00 12/05/17 21:44 Senna - PO 2 tab HS ANTHONY Administration Home Medications Medication Instructions Recorded Cholecalciferol (Vitamin D3) 2,000 unit PO DAILY 09/19/17 [Vitamin D3] Quetiapine Fumarate [Seroquel -] 25 mg PO HS 09/19/17 Rosuvastatin [Crestor -] 10 mg PO DAILY 09/19/17 Sennosides [Senna Laxative] 17.2 mg PO HS 09/19/17 levETIRAcetam [Keppra Oral 250 mg PO BID cup 09/22/17 Solution -] Amlodipine Besylate [Norvasc -] 5 mg PO DAILY 12/03/17 Aspirin Coated [Ecotrin -] 81 mg PO DAILY 12/03/17 Losartan Potassium [Cozaar -] 50 mg PO DAILY 12/03/17 Microbiology 12/02/17 23:48 Urine - Urine - Catheterized Urine Culture - Final Escherichia Coli sensitive to ceftriaxone 12/03/17 01:34 Blood - Peripheral Venous Blood Culture - Preliminary NO GROWTH OBTAINED AFTER 72 HOURS, INCUBATION TO CONTINUE FOR 2 DAYS. 12/03/17 01:34 Blood - Peripheral Venous Blood Culture - Preliminary NO GROWTH OBTAINED AFTER 72 HOURS, INCUBATION TO CONTINUE FOR 2 DAYS. ASSESSMENT AND PLAN: Patient is a 82yo Female with PMHx of UTI 2016, 09/2017, PNA 2016, seizures, dementia, HTN, HLD, chronic constipation, elevated LFTs presented to the ED from her adult home after vomiting. #Acute UTI continue Ceftriaxione 1gm IV , since sensitive to it , will discharge patient back to rehab in am if remains stable with oral ABx ceftin for 4 more days. # Acute vomiting/abd distention , no further vomiting; Abdominal Xray ordered was negative for obstruction # cough: CXR is negative for any pathology. received levaquin in ED. Swallowing evaluation ordered ; Tayler Hernandez for consult - # HTN/HLD continue home cozaar, norvasc and crestor # constipation cont home senna, colace DVT PPX: heparin 5000u SC TID possible discharge back to NH on oral Ceftin x 5 more days Visit type - Emergency Visit Emergency Visit: Yes ED Registration Date: 12/03/17 Care time: The patient presented to the Emergency Department on the above date and was hospitalized for further evaluation of their emergent condition. - New Patient This patient is new to me today: No - Critical Care Critical Care patient: No - Discharge Referral Referred to [facility] Med P.C.: No
[2017-12-06] MEDS ORDERED: DEXTROSE 5%-WATER - 50 ML IVPB ONE (22:16)
[2017-12-06] MEDS ORDERED: cefTRIAXone SODIUM 1 GM VIAL ONE (22:16)
[2017-12-06] MEDS ORDERED: PT OWN MED DRAWER 7, Y5N ONE (22:16)
[2017-12-06] MEDS: CEFTRIAXONE 1 GM in DEXTROSE 5%-WATER - 50 ML IVPB SCH (22:20)
[2017-12-06] MEDS: ROSUVASTATIN CA 10 MG TABLET (FP) PO SCH (22:21)
[2017-12-06] MEDS: SENNOSIDES 8.6MG TABLET (FP) PO SCH (22:21)
[2017-12-06] MEDS: QUEtiapine FUMARATE 25 MG TABLET (FP) PO SCH (22:21)
[2017-12-07] MEDS: HEPARIN NA (PORCINE) 5,000 UNITS/ML 1ML VIAL SQ SCH ×3 (05:48→22:03)
[2017-12-07] MEDS ORDERED: PT OWN MED DRAWER 7, Y5N ONE (09:37)
[2017-12-07] MEDS: CHOLECALCIFEROL (VITAMIN D3) 1,000 UNIT TABLET (FP) PO SCH (09:47)
[2017-12-07] MEDS: LOSARTAN POTASSIUM 50 MG TABLET (FP) PO SCH (09:47)
[2017-12-07] MEDS: ASPIRIN COATED 81 MG TABLET.EC PO SCH (09:47)
[2017-12-07] MEDS: amLODIPine BESYLATE 5 MG TABLET (FP) PO SCH (09:47)
[2017-12-07] MEDS: levETIRAcetam 500 MG/5 ML ORAL SOLUTION (UNIT-DOSE CUPS) PO SCH ×2 (09:47→22:09)
[2017-12-07] MEDS ORDERED: DEXTROSE 5%-WATER - 50 ML IVPB ONE (20:55)
[2017-12-07] MEDS ORDERED: cefTRIAXone SODIUM 1 GM VIAL ONE (20:55)
--- NOTE | 2017-12-07 21:35 | PN ---
Addendum entered and electronically signed by Ubaldo Maynard, RESIDENT 12/08/17 11:31: ADDENDUM: Edit: Problem next: Metabolic encephalopathy: Resolved; pt currently at baseline mentation and alertness Original Note: <Ubaldo Maynard - Last Filed: 12/07/17 21:39> Physical Exam: SUBJECTIVE: HPI limited due to pt being nonverbal. More alert compared to before. OBJECTIVE: Vital Signs Period Temp Pulse Resp BP Sys/Freeman Pulse Ox Last 24 Hr 97.7 F-98.6 F 50-67 18-20 102-146/50-62 97 GENERAL: NAD, awake, alert, Nonverbal HEENT: HERRERA, NC/AT, sclera anicteric, MMM, withdrawn bottom lips. NECK: No JVD LUNGS: CTA bilaterally with poor inspiratory effort, no wheezes, no crackles, no accessory muscle use. HEART: RRR, S1, S2 without murmur ABDOMEN: Soft, nondistended, no facial grimmacing with palpation, normoactive bowel sounds, no guarding, no hepatomegaly EXTREMITIES: 2+ DP pulses, well-perfused, no edema. SKIN: Warm, dry, normal turgor, no rashes or lesions noted Active Medications Generic Name Dose Route Start Last Admin Trade Name Freq PRN Reason Stop Dose Admin Acetaminophen 1,000 mg 12/03/17 20:07 Ofirmev Injection - IVPB Q6H PRN FEVER Amlodipine Besylate 5 mg 12/03/17 10:00 12/07/17 09:47 Norvasc - PO 5 mg DAILY ANTHONY Administration Aspirin 81 mg 12/03/17 10:00 12/07/17 09:47 Ecotrin - PO 81 mg DAILY ANTHONY Administration Cholecalciferol 2,000 unit 12/03/17 10:00 12/07/17 09:47 Vitamin D3 - PO 2,000 unit DAILY ANTHONY Administration Heparin Sodium (Porcine) 5,000 unit 12/03/17 06:00 12/07/17 14:29 Heparin - SQ 5,000 unit TID ANTHONY Administration Ceftriaxone Sodium 1 gm/ 50 mls @ 100 mls/hr 12/03/17 22:00 12/06/17 22:20 Dextrose IVPB 100 mls/hr HS ANTHONY Administration Protocol Levetiracetam 250 mg 12/03/17 10:00 12/07/17 09:47 Keppra Oral Solution - PO 250 mg BID ANTHONY Administration Losartan Potassium 50 mg 12/03/17 10:00 12/07/17 09:47 Cozaar - PO 50 mg DAILY ANTHONY Administration Quetiapine Fumarate 25 mg 12/03/17 22:00 12/06/17 22:21 Seroquel - PO 25 mg HS ANTHONY Administration Rosuvastatin Calcium 10 mg 12/04/17 22:00 12/06/17 22:21 Crestor - PO 10 mg HS ANTHONY Administration Senna 2 tab 12/03/17 22:00 12/06/17 22:21 Senna - PO 2 tab HS ANTHONY Administration ASSESSMENT/PLAN: 1) UTI --Continue Rocephin 1gm daily --Can transition to Ceftin BID for discharge purposes for 5 days --UCx showing E. Coli mostly pansensitive --Discontinue IVF --Tylenol for fevers 2) HTN --continue home Cozaar 50mg qDaily --continue Norvasc 5mg qDaily 3) HLD --Continue Crestor 10mg qdaily FEN: Fluids: None; tolerating PO and euvolemic Electrolyte abnormalities: none currently Nutrition: Dysphagia puree with nectar thick liquids PPX: DVT - Heparin SQ Dispo: PT eval showing pt needs at least 2 person assist where baseline was 1 person assist prior; d/c to rehab tomorrow pending Case discussed with Dr. Felicitas Maynard, DO - IM PGY-1 Visit type - Emergency Visit Emergency Visit: No - New Patient This patient is new to me today: No - Critical Care Critical Care patient: No <Zeny Polk - Last Filed: 12/08/17 20:30> Physical Exam: SUBJECTIVE: Patient seen and examined OBJECTIVE: Vital Signs Period Temp Pulse Resp BP Sys/Freeman Pulse Ox Last 24 Hr 97.5 F-98.3 F 51-55 16-18 103-136/51-70 95-96 GENERAL: NAD, awake, alert, eyes open and smiles when spoken in her langauage . Nonverbal HEENT: HERRERA, NC/AT, sclera anicteric, dry mucosa, withdrawn bottom lips. NECK: No JVD LUNGS: CTA bilaterally with poor inspiratory effort, no wheezes, no crackles, no accessory muscle use. HEART: RRR, S1, S2 without murmur ABDOMEN: Soft, nondistended, no facial grimmacing with palpation, normoactive bowel sounds, no guarding, no hepatomegaly EXTREMITIES: 2+ DP pulses, well-perfused, no edema. SKIN: Hot, dry, normal turgor, no rashes or lesions noted Microbiology 12/02/17 23:48 Urine - Urine - Catheterized Urine Culture - Final Escherichia Coli sensitive to ceftriaxone 12/03/17 01:34 Blood - Peripheral Venous Blood Culture - Preliminary NO GROWTH OBTAINED AFTER 72 HOURS, INCUBATION TO CONTINUE FOR 2 DAYS. 12/03/17 01:34 Blood - Peripheral Venous Blood Culture - Preliminary NO GROWTH OBTAINED AFTER 72 HOURS, INCUBATION TO CONTINUE FOR 2 DAYS. ASSESSMENT AND PLAN: Patient is a 82yo Female with PMHx of UTI 2015, 09/2017, PNA 2016, seizures, dementia, HTN, HLD, chronic constipation, elevated LFTs presented to the ED from her adult home after vomiting. #Acute UTI continue Ceftriaxione 1gm IV , since sensitive to it , will discharge patient back to rehab in am if remains stable with oral ABx ceftin for 4 more days. # Acute vomiting/abd distention , no further vomiting; Abdominal Xray ordered was negative for obstruction # cough: CXR is negative for any pathology. received levaquin in ED. Swallowing evaluation ordered ; Tayler Hernandez for consult - # HTN/HLD continue home cozaar, norvasc and crestor # constipation cont home senna, colace DVT PPX: heparin 5000u SC TID possible discharge back to NH on oral Ceftin x 5 more days
[2017-12-07] MEDS: CEFTRIAXONE 1 GM in DEXTROSE 5%-WATER - 50 ML IVPB SCH (22:02)
[2017-12-07] MEDS: SENNOSIDES 8.6MG TABLET (FP) PO SCH (22:02)
[2017-12-07] MEDS: QUEtiapine FUMARATE 25 MG TABLET (FP) PO SCH (22:03)
[2017-12-07] MEDS: ROSUVASTATIN CA 10 MG TABLET (FP) PO SCH (22:03)
[2017-12-08] MEDS: HEPARIN NA (PORCINE) 5,000 UNITS/ML 1ML VIAL SQ SCH ×2 (06:55→14:43)
[2017-12-08] MEDS: levETIRAcetam 500 MG/5 ML ORAL SOLUTION (UNIT-DOSE CUPS) PO SCH (09:58)
[2017-12-08] MEDS: ASPIRIN COATED 81 MG TABLET.EC PO SCH (09:58)
[2017-12-08] MEDS: CHOLECALCIFEROL (VITAMIN D3) 1,000 UNIT TABLET (FP) PO SCH (09:58)
[2017-12-08] MEDS: LOSARTAN POTASSIUM 50 MG TABLET (FP) PO SCH (09:59)
[2017-12-08] MEDS: amLODIPine BESYLATE 5 MG TABLET (FP) PO SCH (09:59)
--- NOTE | 2017-12-08 11:36 | DS ---
Physical Exam: SUBJECTIVE: Patient seen and examined OBJECTIVE: Vital Signs Period Temp Pulse Resp BP Sys/Freeman Pulse Ox Last 24 Hr 97.8 F-98.5 F 50-55 16-18 103-136/51-70 96 PHYSICAL EXAM GENERAL: The patient is awake, alert, and fully oriented, in no acute distress. HEAD: Normal with no signs of trauma. EYES: PERRL, extraocular movements intact, sclera anicteric, conjunctiva clear. ENT: Ears normal, nares patent, oropharynx clear without exudates, moist mucous membranes. NECK: Trachea midline, full range of motion, supple. LUNGS: Breath sounds equal, clear to auscultation bilaterally, no wheezes, no crackles, no accessory muscle use. HEART: Regular rate and rhythm, S1, S2 without murmur, rub or gallop. ABDOMEN: Soft, nontender, nondistended, normoactive bowel sounds, no guarding, no rebound, no hepatosplenomegaly, no masses. EXTREMITIES: 2+ pulses, warm, well-perfused, no edema. NEUROLOGICAL: Cranial nerves II through XII grossly intact. Normal speech, gait not observed. PSYCH: Normal mood, normal affect. SKIN: Warm, dry, normal turgor, no rashes or lesions noted. LABS HOSPITAL COURSE: Date of Admission:12/03/17 Date of Discharge: 12/08/17 Discharge Summary Reason For Visit: DEMENTIA/PNEUMONIA/PANCREATIC ABN Current Active Problems Adrenal adenoma (Acute) Cystitis (Acute) Pneumonia (Acute) UTI (urinary tract infection) (Acute) Weakness (Acute) Alzheimer's dementia (Chronic) Elevated liver enzymes (Chronic) Condition: Stable - Instructions Diet, Activity, Other Instructions: You are being discharged to a nursing facility to help with rehabilitation. She was found to have another urinary tract infection with positive cultures for E. Coli that were pansensitive MEDICATIONS: Please continue Ceftin 500mg BID PO for another 5 days Also continue the pt's home Norvasc 5mg PO Daily, Cozaar 50mg PO Daily, ASA 81mg daily PO Please continue her other home medications as she has been. Pt should continue to eat a dysphagia puree with nectar thick liquids diet Follow-ups: Pt should follow-up with her [facility] physician to make sure her mentation continues to be at baseline (nonverbal, alert) Please continue rehab until able to walk per her baseline (walk with one person assist) Referrals: Yana Orozco MD [Primary Care Provider] - Disposition: [facility] - Home Medications Comprehensive Discharge Medication List: Ambulatory Orders Cholecalciferol (Vitamin D3) [Vitamin D3] 2,000 unit PO DAILY 09/19/17 Quetiapine Fumarate [Seroquel -] 25 mg PO HS 09/19/17 Rosuvastatin [Crestor -] 10 mg PO DAILY 09/19/17 Sennosides [Senna Laxative] 17.2 mg PO HS 09/19/17 levETIRAcetam [Keppra Oral Solution -] 250 mg PO BID cup 09/22/17 Amlodipine Besylate [Norvasc -] 5 mg PO DAILY 12/03/17 Aspirin Coated [Ecotrin -] 81 mg PO DAILY 12/03/17 Losartan Potassium [Cozaar -] 50 mg PO DAILY 12/03/17 Cefuroxime Axetil [Ceftin -] 500 mg PO Q12H #20 tablet 12/08/17 - Discharge Referral Referred to [facility] Med P.C.: No
[2017-12-08 19:03] VITALS: BP 117/63; PULSE 51; TEMP 97.5
--- NOTE | 2017-12-08 21:08 | PN ---
Teaching Attending Note Name of Resident: Ubaldo Maynard ATTENDING PHYSICIAN STATEMENT I saw and evaluated the patient. I reviewed the resident's note and discussed the case with the resident. I agree with the resident's findings and plan as documented. SUBJECTIVE: Patient looks better, stares at you when you talk to her. OBJECTIVE: Vital Signs Temperature 97.5 F L 12/08/17 18:00 Pulse Rate 51 L 12/08/17 18:00 Respiratory Rate 18 12/08/17 18:00 Blood Pressure 117/63 12/08/17 18:00 O2 Sat by Pulse Oximetry (%) 95 12/08/17 10:00 CBCD WBC 7.0 K/mm3 (4.0-10.0) 12/04/17 06:16 RBC 3.60 M/mm3 (3.60-5.2) 12/04/17 06:16 Hgb 10.2 GM/dL (10.7-15.3) L D 12/04/17 06:16 Hct 30.8 % (32.4-45.2) L 12/04/17 06:16 MCV 85.4 fl (80-96) 12/04/17 06:16 MCHC 33.1 g/dl (32.0-36.0) 12/04/17 06:16 RDW 14.3 % (11.6-15.6) 12/04/17 06:16 Plt Count 116 K/MM3 (134-434) L D 12/04/17 06:16 MPV 9.6 fl (7.5-11.1) 12/04/17 06:16 CMP Sodium 144 mmol/L (136-145) 12/04/17 06:16 Potassium 4.5 mmol/L (3.5-5.1) 12/04/17 06:16 Chloride 111 mmol/L (98-107) H 12/04/17 06:16 Carbon Dioxide 27 mmol/L (21-32) 12/04/17 06:16 Anion Gap 6 (8-16) L 12/04/17 06:16 BUN 16 mg/dL (7-18) 12/04/17 06:16 Creatinine 1.0 mg/dL (0.55-1.02) 12/04/17 06:16 Creat Clearance w eGFR 53.35 (>60) 12/04/17 06:16 Random Glucose 71 mg/dL (74-106) L 12/04/17 06:16 Calcium 8.0 mg/dL (8.5-10.1) L 12/04/17 06:16 Total Bilirubin 0.4 mg/dL (0.2-1.0) D 12/04/17 06:16 AST 89 U/L (15-37) H 12/04/17 06:16 ALT 130 U/L (12-78) H 12/04/17 06:16 Alkaline Phosphatase 202 U/L (45-117) H 12/04/17 06:16 Total Protein 5.6 g/dl (6.4-8.2) L 12/04/17 06:16 Albumin 2.5 g/dl (3.4-5.0) L 12/04/17 06:16 CARDIAC ENZYMES Creatine Kinase 70 IU/L (26-192) 12/03/17 01:00 Troponin I < 0.02 ng/ml (0.00-0.05) 12/03/17 01:00 Home Medications Medication Instructions Recorded Cholecalciferol (Vitamin D3) 2,000 unit PO DAILY 09/19/17 [Vitamin D3] Quetiapine Fumarate [Seroquel -] 25 mg PO HS 09/19/17 Rosuvastatin [Crestor -] 10 mg PO DAILY 09/19/17 Sennosides [Senna Laxative] 17.2 mg PO HS 09/19/17 levETIRAcetam [Keppra Oral 250 mg PO BID cup 09/22/17 Solution -] Amlodipine Besylate [Norvasc -] 5 mg PO DAILY 12/03/17 Aspirin Coated [Ecotrin -] 81 mg PO DAILY 12/03/17 Losartan Potassium [Cozaar -] 50 mg PO DAILY 12/03/17 Cefuroxime Axetil [Ceftin -] 500 mg PO Q12H #20 tablet 12/08/17 Microbiology 12/03/17 01:34 Blood - Peripheral Venous Blood Culture - Final NO GROWTH AFTER 5 DAYS INCUBATION 12/03/17 01:34 Blood - Peripheral Venous Blood Culture - Final NO GROWTH AFTER 5 DAYS INCUBATION PE: per resident's note ASSESSMENT AND PLAN: Patient is a 82yo Female with PMHx of UTI 2015, 09/2017, PNA 2016, seizures, dementia, HTN, HLD, chronic constipation, elevated LFTs presented to the ED from her adult home after vomiting. #Acute UTI on Ceftriaxione 1gm IV will continue with Ceftin 500mg po bid x 5 more days . # Acute vomiting/abd distention , no further vomiting; Abdominal Xray ordered was negative for obstruction # cough: CXR is negative for any pathology. received levaquin in ED. Swallowing evaluation ordered ; Tayler Hernandez for consult - # HTN/HLD continue home cozaar, norvasc and crestor # constipation cont home senna, colace DVT PPX: heparin 5000u SC TID patient is going to rehab.
== END 2017-12-08 19:11 | DRG 689 ==
LOC: JER 23:07 → JERBED 12-03 03:48 → UNDOADMIN 12-03 04:05 → JERBED 12-03 04:05 → J5S 12-03 14:00
PROVIDERS: ADMIT Internal Medicine; ATTEND Internal Medicine
DX: N39.0 Urinary tract infection, site not specified (principal); G93.41 Metabolic encephalopathy; G40.89 Other seizures; I10 Essential (primary) hypertension; E78.5 Hyperlipidemia, unspecified; G30.9 Alzheimer's disease, unspecified; F02.80 Dementia in other diseases classified elsewhere, unspecified severity, without behavioral disturbance, psychotic disturbance, mood disturbance, and anxiety; D64.9 Anemia, unspecified; F32.9 Major depressive disorder, single episode, unspecified; F41.9 Anxiety disorder, unspecified; K59.00 Constipation, unspecified; B96.29 Other Escherichia coli [E. coli] as the cause of diseases classified elsewhere; R05 Cough; R13.10 Dysphagia, unspecified
CPT/HCPCS: 36415; 71045-TC-FY; 74190-TC-FY; 80053; 81003; 81015; 82550; 83605; 83690; 83735; 84100; 84484; 85025; 85610; 87040; 87086; 87186; 93005; 93010; 97116-GP; 97162-GP; 99284-25; J0131; J1644; J7030